=== PATIENT | male | born 1955 | race American Indian/Alaskan Native ===

== ENCOUNTER 2016-10-16 12:21 | Inpatient (IN) | payer OTHER ==
--- NOTE | 2016-10-16 13:00 | Emergency Department Report ---
Chief Complaint: Abdominal Pain Stated Complaint: CHEST PAIN/LRQ PAIN Time Seen by Provider: 10/16/16 12:56 - HPI History of Present Illness: 61 y/o abd pain with frequently urination and cough x 6 days .pt state he was seen at [facility] was evaluate and told had gastroenteritis .pt state he still in pain . - ROS Review of Systems: per HPI - Exam Vital Signs: Vital Signs 10/16/16 12:30 Temperature 97.9 F Pulse Rate 118 H Respiratory 22 Rate Blood Pressure 115/84 O2 Sat by Pulse 99 Oximetry Physical Exam: GENERAL: The patient is well-developed and well-nourished. Patient is in NAD. HENT: Normocephalic. Atraumatic. Patient has moist mucous membranes. Throat: No erythema, swelling or exudates. EYES: Extraocular motions are intact, PERRL NECK: Supple. No meningitic signs are noted. There is no adenopathy noted. CHEST/LUNGS: Clear to auscultation bilaterally. No wheezing, rales or rhonchi noted. There is no respiratory distress noted. HEART/CARDIOVASCULAR: Regular rate and rhythm. Normal S1 S2. No murmurs, rubs , clicks, or gallops. ABDOMEN: Abdomen is soft, nontender.. Bowel sounds normoactive. There is no abdominal distention. Negative rebound tenderness. : Deferred. SKIN: There is no rash. There is no edema. There is no diaphoresis. NEURO: The patient is A&Ox3. The patient has no focal neurologic deficits. MUSCULOSKELETAL: There is no tenderness or deformity. There is no limitation range of motion. PSYCH: Pt has appropriate mood and affect. MSE screening note: Focused history and physical exam performed. Due to findings the following was ordered: ED Disposition for MSE Condition: Stable
[2016-10-16 13:22] LABS: Basophils % (Auto) 0.6 % (0.0-1.8); Eosinophils % (Auto) 0.4 % (0.0-4.3); Hematocrit 41.3 % (35.5-45.6); Hemoglobin 13.5 gm/dl (11.8-15.2); Mean Corpuscular HGB Conc 33 % (32-34); Mean Corpuscular Hemoglobin 30 pg (28-32); Mean Corpuscular Volume 92 fl (84-94); Platelet Count 259 K/mm3 (140-440); Red Blood Count 4.48 M/mm3 (3.65-5.03); Red Cell Distribution Width 16.2 % (13.2-15.2); White Blood Count 11.9 K/mm3 (4.5-11.0)
[2016-10-16 13:48] LABS: Albumin 3.9 g/dL (3.9-5); Albumin/Globulin Ratio 0.9 %; BUN/Creatinine Ratio 9.56; Bilirubin,Direct 0.2 mg/dL (0-0.2); Bilirubin,Indirect 0.7 mg/dL; Bilirubin,Total 0.9 mg/dL (0.1-1.2); Calcium 9.2 mg/dL (8.4-10.2); Chloride 93.5 mmol/L (98-107); Potassium 4.2 mmol/L (3.6-5.0); Total Protein 8.4 g/dL (6.3-8.2)
[2016-10-16] MEDS ORDERED: NACL 0.9% 1000 ML IV ONE (14:14)
[2016-10-16 15:24] LABS: Bacteria,Urine 1+ /HPF (Negative); Bilirubin,Urine NEG (Negative); Blood,Urine NEG (Negative); Ketones,Urine NEG (Negative); Leukocyte Esterase,Urine NEG (Negative); Mucus,Urine FEW /HPF; Nitrite,Urine NEG (Negative)
--- NOTE | 2016-10-16 15:48 | Cat Scan Report ---
FINAL REPORT PROCEDURE: CT ABDOMEN PELVIS WO CON TECHNIQUE: Computerized axial tomography of the abdomen and pelvis was performed without intravenous contrast. This study is performed without intravascular contrast material and its sensitivity for abdominal and pelvic pathology, including neoplasms, inflammation, abscess, free fluid, thrombosis, arterial dissection and infarction, is reduced compared with a contrast enhanced study. HISTORY: abd pain COMPARISON: No prior studies are available for comparison. FINDINGS: Noncalcified nodule is partially included on the 1st image in the right middle lobe of the lungs measuring approximately 6 millimeters in size. Further evaluation with chest CT may be useful to assess for any other lung nodules. Hypoventilatory changes are seen at the lung bases. The liver and spleen appear normal. Gallbladder has wall thickening and mild pericholecystic fluid suggesting acute cholecystitis. No gallstones are seen. No biliary ductal dilation is seen. Pancreatic calcifications suggest changes from prior pancreatitis. Dilation of the pancreatic duct is seen which could be from prior pancreatitis, also. Pancreatic duct is dilated to 6 millimeters in diameter. Correlation with contrast-enhanced MRI of the pancreas may be useful to assure no obstructing mass in the head of the pancreas. Adrenal glands and abdominal aorta are normal in size. Vague hypodense area is seen in the mid right kidney on image 54 of series 3. This could possibly be artifactual or may be a benign cyst but solid lesion can't be excluded given the vague appearance. This could be evaluated with MRI at the same time as the pancreas. No left renal abnormality is seen. Bladder is not well-distended without obvious abnormality. Phleboliths are seen in the pelvis. No free pelvic fluid is seen. Mild left-sided colonic diverticula are seen without evidence of diverticulitis. Appendix is not definitely identified but no pericecal inflammation is seen to suggest appendicitis. Tiny umbilical hernia is seen containing fat. Prostate gland is normal in size. No free pelvic fluid is seen. Increased small bowel air is seen, likely due to swallowed air. Central disc bulges are seen at L3-4, L4-5, and L5-S1. IMPRESSION: 6 millimeter nodule is seen in the right middle lobe of the lungs and further evaluation with chest CT is recommended to assess for any larger nodules. Changes of acute cholecystitis are suspected without biliary ductal dilation. Pancreatic ductal dilation is seen which could be sequela of prior pancreatitis but obstructing lesion in the head of the pancreas cannot be excluded. Furthermore, there is a vague hypodensity in the mid right kidney. Further evaluation with contrast-enhanced MRI is recommended to evaluate these abnormalities.
[2016-10-16] MEDS ORDERED: ZOSYN/NS 4.5GM/100ML 100 ML IV ONE (15:58)
[2016-10-16] MEDS ORDERED: ZOFRAN IV PRN ×2 (18:26→20:48)
[2016-10-16] MEDS ORDERED: MORPHINE IV PRN (18:26)
--- NOTE | 2016-10-16 18:51 | Emergency Department Report ---
HPI - General Chief Complaint: Abdominal Pain Time Seen by Provider: 10/16/16 14:06 - HPI HPI: Chief complaint: Abdominal pain, cough, dysuria HPI: Patient is a 61-year-old male complaining of right abdominal pain radiating to his chest. Patient states he was seen in [facility] 4 days ago with same complaint and Zohrafran diagnosed with gastroenteritis. States he took blood but did no x-rays or CT scans. Patient's rate sees continued to get worse. Patient states she's had a productive cough for 2 weeks and his abdominal pain has been there for 3 days. Patient does have some nausea and vomiting. Patient has a history of pancreatitis Mode of arrival: private car Source: Patient Began: Abdominal pain began on Tuesday] Duration: 3 days Context: Denies previous abdominal surgery Quality: Sharp Severity: 10 out of 10 Improved with: Nothing Worsened with: Palpation, movement and coughing Associated signs and symptoms: Denies fever or diarrhea. ED Past Medical Hx - Past Medical History Previous Medical History?: Yes Hx Hypertension: Yes Hx Heart Attack/AMI: Yes Hx Seizures: Yes Additional medical history: gout, pancreatitis - Surgical History Past Surgical History?: No - Social History Smoking Status: Current Every Day Smoker Substance Use Type: Prescribed - Medications Home Medications: Home Medications Medication Instructions Recorded Confirmed Last Taken Type Clopidogrel Bisulfate [Plavix] 75 mg PO QDAY 10/16/16 10/16/16 Unknown History Lisinopril/Hydrochlorothiazide 1 tab PO QDAY 10/16/16 10/16/16 Unknown History [Zestoretic 20-25 mg] Metoprolol Xl [Metoprolol 50 mg PO QDAY 10/16/16 10/16/16 Unknown History SUCCINATE ER TAB] Nitroglycerin [Nitrostat] 0.4 mg SL Q5M PRN 10/16/16 10/16/16 Unknown History Omeprazole 20 mg PO QDAY 10/16/16 10/16/16 Unknown History amLODIPine [Norvasc] 10 mg PO DAILY 10/16/16 10/16/16 Unknown History levETIRAcetam [Keppra TAB] 750 mg PO BID 10/16/16 10/16/16 Unknown History ED Review of Systems ROS: Stated complaint: CHEST PAIN/LRQ PAIN Other details as noted in HPI ROS Constitutional: No fever , patient states he's lost a little weight. ENT: No uri symptoms Cardiovascular: No chest pain Respiratory: No sob GI: No diarrhea : No dysuria frequency or urgency, Skin: No rash Neuro: No focal weakness or numbness Psych: No depression Jaxon/lymph: No edema Physical Exam - Physical Exam Vital Signs: Vital Signs 10/16/16 10/16/16 10/16/16 12:30 13:27 14:00 Temperature 97.9 F Pulse Rate 118 H 100 H Respiratory 22 16 13 Rate Blood Pressure 115/84 110/66 Blood Pressure 110/66 [Left] O2 Sat by Pulse 99 94 Oximetry 10/16/16 14:54 Temperature Pulse Rate Respiratory 18 Rate Blood Pressure Blood Pressure [Left] O2 Sat by Pulse 94 Oximetry Physical Exam: GENERAL: The patient is thin -[place] male complaining of pain with a deep wet cough HEENT: Normocephalic. Atraumatic. Extraocular motions are intact. Patient has moist mucous membranes. NECK: Supple. No meningitic signs are noted. There is no adenopathy noted. CHEST/LUNGS: Rhonchi right greater than left. There is no respiratory distress noted. HEART/CARDIOVASCULAR: Regular. There is no tachycardia. There is no gallop rub or murmur. ABDOMEN: Abdomen is soft, tender right upper and right lower quadrants. Patient has normal bowel sounds. There is no abdominal distention. SKIN: There is no rash. There is no edema. There is no diaphoresis. NEURO: The patient is awake, alert, and oriented. The patient is cooperative. The patient has no focal neurologic deficits. The patient has normal speech. MUSCULOSKELETAL: There is no tenderness or deformity. There is no limitation range of motion. There is no evidence of acute injury. ED Course Vital Signs 10/16/16 10/16/16 10/16/16 12:30 13:27 14:00 Temperature 97.9 F Pulse Rate 118 H 100 H Respiratory 22 16 13 Rate Blood Pressure 115/84 110/66 Blood Pressure 110/66 [Left] O2 Sat by Pulse 99 94 Oximetry 10/16/16 14:54 Temperature Pulse Rate Respiratory 18 Rate Blood Pressure Blood Pressure [Left] O2 Sat by Pulse 94 Oximetry - Reevaluation(s) Reevaluation #1: 10/16/16 15:[address] Alfredo who states he will consult surgery. Patient will be admitted for rehydration and further evaluation. ED Medical Decision Making - Lab Data Result diagrams: 10/16/16 13:10 10/16/16 13:10 Laboratory Tests 10/16/16 13:10 Total Protein 8.4 H Amylase 71 Lipase 28 Urinalysis within normal limits. - Radiology Data Radiology results: report reviewed (CT abdomen changes of acute cholecystitis or suspected without any biliary ductal dilatation. Pancreatic ductal dilatation is seen which could be a sequelae of prior pancreatitis with an obstructing lesion in the head of the pancreas cannot be excluded) Critical care attestation.: If time is entered above; I have spent that time in minutes in the direct care of this critically ill patient, excluding procedure time. ED Disposition Clinical Impression: Cholecystitis Acute renal failure Qualifiers: Acute renal failure type: unspecified Qualified Code(s): N17.9 - Acute kidney failure, unspecified Disposition: OP ADMITTED IP TO THIS HOSP Is pt being admited?: Yes Does the pt Need Aspirin: Yes Condition: Fair Time of Disposition: 15:58 (admit to the hospitalist)
[2016-10-16] MEDS ORDERED: ASPIRIN PO ONE (18:57)
[2016-10-16] MEDS ORDERED: DULCOLAX PR PRN (20:48)
[2016-10-16] MEDS ORDERED: TYLENOL PO PRN (20:48)
[2016-10-16] MEDS ORDERED: MILK OF MAGNESIA PO PRN (20:48)
--- NOTE | 2016-10-16 20:58 | Event Note ---
Date: 10/16/16 Acute Cholecystitis HTN Seizure Disorder CAD on plavix-stopped plavix
--- NOTE | 2016-10-16 21:39 | Admit Criteria Form ---
Admission Criteria Documentation: GALLBLADDER OR BILE DUCT INFLAMMATION OR STONE Clinical Indications for Admission to Inpatient Care ( Place 'X' for any and all applicable criteria): Admission is indicated for patients with ANY ONE of the following(1)(2)(3)(4)(5) : [ ]I. Acute cholecystitis as indicated by ALL of the following: [ ]a) Right upper quadrant pain, mass, or tenderness [ ]b) Systemic signs of inflammation indicated by ANY ONE of the following: [ ]i) Fever [ ]ii) C-reactive protein level greater than 10 mg/L (95 nmol/L) [ ]iii) White blood cell count greater than 10,000/mm3 (10 x109/L) or less than 4000/mm3 (4 x109/L) [X ]II. Inpatient admission required rather than observation care (Also use Gallbladder or Bile Duct Inflammation or Stone: Observation Care as appropriate) because of ANY ONE of the following: [ ]a) Common bile duct obstruction diagnosed [ ]b) Vomiting that is severe or persistent [X ]c) Severe pain requiring acute inpatient management [ ]d) Signs of intestinal obstruction or peritonitis [A] [ ]e) Severe electrolyte abnormalities requiring inpatient care [ ]f) Absent bowel sounds with complete ileus(8) [ ]g) Hemodynamic instability [ ]h) High fever or infection requiring inpatient admission as indicated by ANY ONE of the following (9): [ ]1) Appropriate outpatient or observation care antimicrobial Treatment. unavailable, not effective, or not feasible [ ]2) Temperature greater than 104.9 degrees F (40.5 degrees C) (oral) [ ]3) Temperature greater than 103.1 degrees F (39.5 degrees C) (oral) or less than 96.8 degrees F (36 degrees C) (rectal) that does not respond to all emergency treatment measures [ ]4) Documented bacteremia [ ]i) IV fluid to replace significant ongoing losses (greater than 3 L/m2 per day) [ ]j) Percutaneous or open drainage (eg, abscess, biliary tract) procedures [ ]k) Immediate inpatient surgery [ ]l) Other condition, treatment or monitoring requiring inpatient admission [ ]III. Acute cholangitis as indicated by ALL of the following(9)(10): [ ]a) Systemic signs of inflammation indicated by ANY ONE of the following: [ ]i) Fever [ ]ii) C-reactive protein level greater than 10 mg/L (95 nmol /L) [ ]iii) White blood cell count greater than 10,000/mm3 (10 x109/L) or less than 4000/mm3 (4 x109/L) [ ]b) Evidence of common bile duct disease indicated by ANY ONE of the following: [ ]i) Total serum bilirubin level greater than or equal to 2 mg/dL (34 micromoles/L) [ ]ii) Liver function test (alkaline phosphatase (ALP), r- glutamyltransferase (GGT), aspartate aminotransferase (AST), or alanine aminotransferase (ALT)) greater than 1.5 times the upper limit of normal[B] [ ]iii) Hepatobiliary imaging showing biliary dilatation or evidence of etiology (eg, stricture, stone, previously placed stent) Extended stay beyond goal length of stay may be needed for (1)(2)): [ ]a) Bacteremia or Hemodynamic instability [ ]b) Cholecystectomy [ ]c) Other surgical procedure(24) [ ]d) Percutaneous or endoscopic ultrasound-guided cholecystostomy The original [facility] content created by [facility] has been revised. The portions of the content which have been revised are identified through the use of italic text or in bold, and [facility] has neither reviewed nor approved the modified material. All other unmodified content is copyright [facility]. Please see references footnoted in the original [facility] edition 2016 Admission Criteria Met: Yes
--- NOTE | 2016-10-16 21:54 | History and Physical Report ---
CHIEF COMPLAINT: Left abdominal pain for 4 days. HISTORY OF PRESENT ILLNESS: A 61-year-old male who presents with right upper quadrant pain for 4 days. The patient went to [facility] and apparently no workup was done. The patient was given Zofran for gastroenteritis. They did not do any x-rays or CAT scans. The patient's abdominal pain got worse. Pain is about 10 on a scale of 1-10. No fever, no chills. PAST MEDICAL HISTORY: Significant for seizure disorder, hypertension, coronary artery disease, gout, and pancreatitis. PAST SURGICAL HISTORY: None. SOCIAL HISTORY: Smokes a pack a day. CURRENT MEDICATIONS: Plavix 75 mg daily, lisinopril 20/25 mg p.o. daily, metoprolol XL 50 mg p.o. daily, omeprazole 20 mg p.o. daily, amlodipine 10 mg p.o. daily, and Keppra 750 mg p.o. b.i.d. FAMILY HISTORY: Significant for hypertension. REVIEW OF SYSTEMS: Significant for right upper quadrant pain, which is 10/10, associated with nausea, no vomiting, no diarrhea. Otherwise, review of systems is essentially negative. PHYSICAL EXAMINATION: GENERAL: Elderly male, cooperative during examination. VITAL SIGNS: Blood pressure is 115/84, temperature is 97.9, pulse is 118, respiratory rate is 22. HEENT: Unremarkable. Pupils equal and reactive. NECK: Supple, no lymphadenopathy, no thyromegaly. LUNGS: Clear to auscultation and percussion. Good air entry. CARDIOVASCULAR: S1, S2 heard. No gallop, no murmur, no rub. Apical impulse in left fifth intercostal space and midclavicular line. ABDOMEN: Soft and benign. Tenderness present in the right upper quadrant region, guarding present in the right upper quadrant region. Bowel sounds are normal. Hernial orifices are normal. EXTREMITIES: Good pedal pulses. No pedal edema. CENTRAL NERVOUS SYSTEM: Alert and oriented x 4, nonfocal exam. LABORATORY DATA: Significant for white count 11,900, slightly elevated. Sodium is 136, slightly low, BUN and creatinine is 22 and 2.3, total protein is 8.4. Urine is negative. CAT scan of the abdomen shows changes of acute cholecystitis without biliary duct dilation. Pancreatic ductal dilatation is seen. 6 mm nodule in the right middle lobe of the lungs for which a CT of the chest was recommended. ASSESSMENT AND PLAN: 1. Acute cholecystitis. The patient was started on IV Zosyn. Surgery consult requested. The patient may need cholecystectomy. 2. Hypertension. The patient's blood pressure medications were kept on hold. We will add Catapres TTS-3 patch to keep his blood pressure down. 3. Seizure disorder. We will start him on IV Keppra 750 mg q. 12 hours to prevent seizures. 4. Coronary artery disease. Stop Plavix because of the impending surgery and the possibility of bleeding. 5. Deep venous thrombosis prophylaxis, Lovenox 40 mg subcutaneous daily. JOB# [id number] KEVIN/ANN-MARIE
[2016-10-16] MEDS ORDERED: CATAPRES-TTS PATCH TD SCH (22:00)
[2016-10-16] MEDS ORDERED: D5NS 1,000 ML IV SCH (22:00)
[2016-10-16] MEDS ORDERED: LOVENOX SUB-Q SCH (22:00)
[2016-10-16] MEDS ORDERED: ZOSYN/NS 4.5GM/100ML 100 ML IV SCH (22:00)
--- NOTE | 2016-10-16 22:08 | History and Physical Report ---
ADDENDUM: Acute renal failure. IV fluids for the time being and check the creatinine. No nephrology consult was requested. JOB# [id number] KEVIN/ANN-MARIE
[2016-10-16] MEDS: KEPPRA 750 MG in D5W 100 ML IV SCH (22:42)
[2016-10-16] MEDS: MORPHINE IV PRN (22:50)
[2016-10-16] MEDS: ZOSYN/NS 3.375GM/50ML 50 ML IV SCH (23:17)
[2016-10-17 04:36] LABS: Albumin 2.8 g/dL (3.9-5); Albumin/Globulin Ratio 0.9 %; BUN/Creatinine Ratio 11.17; Bilirubin,Total 0.9 mg/dL (0.1-1.2); Calcium 7.7 mg/dL (8.4-10.2); Potassium 4.6 mmol/L (3.6-5.0)
[2016-10-17 04:55] LABS: Basophils % (Auto) 0.4 % (0.0-1.8); Eosinophils % (Auto) 0.2 % (0.0-4.3); Hematocrit 35.6 % (35.5-45.6); Hemoglobin 11.3 gm/dl (11.8-15.2); Mean Corpuscular HGB Conc 32 % (32-34); Mean Corpuscular Hemoglobin 30 pg (28-32); Mean Corpuscular Volume 94 fl (84-94); Red Blood Count 3.79 M/mm3 (3.65-5.03); Red Cell Distribution Width 16.8 % (13.2-15.2); White Blood Count 6.9 K/mm3 (4.5-11.0)
[2016-10-17 05:33] LABS: Platelet Count 153 K/mm3 (140-440)
[2016-10-17] MEDS: ZOSYN/NS 3.375GM/50ML 50 ML IV SCH ×2 (08:29→17:48)
[2016-10-17] MEDS: MORPHINE IV PRN ×3 (08:34→22:54)
--- NOTE | 2016-10-17 10:11 | XRay Report ---
ROUTINE CHEST, TWO VIEWS: HISTORY: Cough. The trachea, heart, mediastinal contour, lung naqvi and bony thorax are unremarkable. IMPRESSION: Unremarkable chest x-ray.
[2016-10-17] MEDS ORDERED: ZOFRAN IV PRN (10:58)
--- NOTE | 2016-10-17 10:58 | Progress Note ---
Assessment and Plan Assessment and plan: Patient is a 61-year-old man with a history of seizure disorder, hypertension, coronary artery disease, pancreatitis and tobacco dependency who presents with abdominal pain. 10/26/2016 CT abdomen and pelvis without contrast: 6 mm nodule seen in right middle lobe lungs and further evaluation with chest CT is recommended to assess for any larger nodule. Changes of acute cholecystitis or suspected without biliary ductal dilatation. Pancreatic ductal dilatation seen could be sequelae of prior pancreatitis but obstructing lesion in the head of the pain continues cannot be excluded. Furthermore, there is a vague hypodensity in the mid right kidney. Further evaluation with contrast enhanced MRI is recommended to evaluate these abnormalities. Unremarkable chest x-ray 2 views 1. Acute cholecystitis with abnormal CT: IV antibiotics and consulted general surgery 2. Seizure disorder: Continue Keppra 3. Hypertension, chronic and stable 4. Tobacco dependence: Cessation Counseling done 5. DVT prophylaxis: SCD, stopped Lovenox for possible surgery will start him on heparin Full code Disposition: Continue inpatient care History Interval history: Patient seen and examined. Follow up on abdominal pain which is still present. Overnight uneventful. No cp, sob, n/v or severe headaches. Imaging, old records , testing, labs, nursing notes reviewed. Hospitalist Physical - Physical exam Narrative exam: GEN: Thin frail NAD, AWAKE, ALERT, ORIENTATED 3 HEENT: NCAT, PERRL, EOMI, OP CLEAR NECK: SUPPLE, NO THYROMEGALY, NO JVD, NO LAD CVS: RRR, NORMAL S1S2 LUNGS/CHEST: CTA B, NORMAL CHEST EXPANSION B, GOOD AIR ENTRY B ABD: SOFT, EPIGASTRIC TENDERNESS WITHOUT DISTENTION, GBS, NO REBOUND OR GUARDING EXT/SKIN: NO SIGNIFICANT EDEMA OR RASH MSK: FROM X 4 EXTREMITIES NEURO: CN 2-12 GROSSLY INTACT, NO NEW FOCAL DEFICITS PSY: CALM - Constitutional Vitals: Temp Pulse Resp BP Pulse Ox 99.0 F 90 18 107/72 96 10/17/16 08:00 10/17/16 08:00 10/17/16 08:00 10/17/16 08:00 10/17/16 08:00 Results - Labs CBC & Chem 7: 10/17/16 03:48 10/17/16 03:48 Labs: Laboratory Last Values WBC 6.9 K/mm3 (4.5-11.0) 10/17/16 03:48 RBC 3.79 M/mm3 (3.65-5.03) 10/17/16 03:48 Hgb 11.3 gm/dl (11.8-15.2) L 10/17/16 03:48 Hct 35.6 % (35.5-45.6) 10/17/16 03:48 MCV 94 fl (84-94) 10/17/16 03:48 MCH 30 pg (28-32) 10/17/16 03:48 MCHC 32 % (32-34) 10/17/16 03:48 RDW 16.8 % (13.2-15.2) H 10/17/16 03:48 Plt Count 153 K/mm3 (140-440) 10/17/16 03:48 Lymph % (Auto) 17.0 % (13.4-35.0) 10/17/16 03:48 Vermilion % (Auto) 4.6 % (0.0-7.3) 10/17/16 03:48 Eos % (Auto) 0.2 % (0.0-4.3) 10/17/16 03:48 Baso % (Auto) 0.4 % (0.0-1.8) 10/17/16 03:48 Lymph # 1.2 K/mm3 (1.2-5.4) 10/17/16 03:48 Vermilion # 0.3 K/mm3 (0.0-0.8) 10/17/16 03:48 Eos # 0.0 K/mm3 (0.0-0.4) 10/17/16 03:48 Baso # 0.0 K/mm3 (0.0-0.1) 10/17/16 03:48 Seg Neutrophils % 77.8 % (40.0-70.0) H 10/17/16 03:48 Seg Neutrophils # 5.3 K/mm3 (1.8-7.7) 10/17/16 03:48 Sodium 129 mmol/L (137-145) L D 10/17/16 03:48 Potassium 4.6 mmol/L (3.6-5.0) 10/17/16 03:48 Chloride 96.0 mmol/L (98-107) L 10/17/16 03:48 Carbon Dioxide 20 mmol/L (22-30) L 10/17/16 03:48 Anion Gap 18 mmol/L 10/17/16 03:48 BUN 19 mg/dL (9-20) 10/17/16 03:48 Creatinine 1.7 mg/dL (0.8-1.5) H 10/17/16 03:48 Estimated GFR 50 ml/min 10/17/16 03:48 BUN/Creatinine Ratio 11.17 % 10/17/16 03:48 Glucose 119 mg/dL (75-100) H 10/17/16 03:48 Calcium 7.7 mg/dL (8.4-10.2) L D 10/17/16 03:48 Total Bilirubin 0.9 mg/dL (0.1-1.2) 10/17/16 03:48 Direct Bilirubin 0.2 mg/dL (0-0.2) 10/16/16 13:10 Indirect Bilirubin 0.7 mg/dL 10/16/16 13:10 AST 42 units/L (5-40) H 10/17/16 03:48 ALT 13 units/L (7-56) 10/17/16 03:48 Alkaline Phosphatase 198 units/L (35-129) H 10/17/16 03:48 Total Protein 6.0 g/dL (6.3-8.2) L D 10/17/16 03:48 Albumin 2.8 g/dL (3.9-5) L 10/17/16 03:48 Albumin/Globulin Ratio 0.9 % 10/17/16 03:48 Amylase 71 units/L (27-131) 10/16/16 13:10 Lipase 28 units/L (13-60) 10/16/16 13:10 Urine Color Nancy (Yellow) 10/16/16 14:34 Urine Turbidity Cloudy (Clear) 10/16/16 14:34 Urine pH 5.0 (5.0-7.0) 10/16/16 14:34 Ur Specific Warren 1.017 (1.003-1.030) 10/16/16 14:34 Urine Protein 30 mg/dl mg/dL (Negative) 10/16/16 14:34 Urine Glucose (UA) Neg mg/dL (Negative) 10/16/16 14:34 Urine Ketones Neg mg/dL (Negative) 10/16/16 14:34 Urine Blood Neg (Negative) 10/16/16 14:34 Urine Nitrite Neg (Negative) 10/16/16 14:34 Urine Bilirubin Neg (Negative) 10/16/16 14:34 Urine Urobilinogen 2.0 mg/dL (<2.0) 10/16/16 14:34 Ur Leukocyte Esterase Neg (Negative) 10/16/16 14:34 Urine WBC (Auto) 6.0 /HPF (0.0-6.0) 10/16/16 14:34 Urine RBC (Auto) 5.0 /HPF (0.0-6.0) 10/16/16 14:34 U Epithel Cells (Auto) 2.0 /HPF (0-13.0) 10/16/16 14:34 Urine Bacteria (Auto) 1+ /HPF (Negative) 10/16/16 14:34 Urine Mucus Few /HPF 10/16/16 14:34 - Imaging and Cardiology Chest x-ray: report reviewed CT scan - abdomen: report reviewed CT scan - pelvis: report reviewed
[2016-10-17] MEDS: KEPPRA 750 MG in D5W 100 ML IV SCH ×2 (11:02→22:57)
[2016-10-17] MEDS: D5/0.45NS 1,000 ML IV SCH (11:08)
[2016-10-18] MEDS: ZOSYN/NS 3.375GM/50ML 50 ML IV SCH (00:30)
[2016-10-18 04:59] LABS: Hemoglobin 10.7 gm/dl (11.8-15.2); Mean Corpuscular HGB Conc 33 % (32-34); Mean Corpuscular Hemoglobin 30 pg (28-32); Mean Corpuscular Volume 92 fl (84-94); Platelet Count 211 K/mm3 (140-440); Red Cell Distribution Width 15.8 % (13.2-15.2); White Blood Count 3.9 K/mm3 (4.5-11.0)
[2016-10-18 05:14] LABS: Alanine Aminotransferase 27 units/L (7-56); Albumin 2.9 g/dL (3.9-5); Albumin/Globulin Ratio 0.9 %; Alkaline Phosphatase 110 units/L (35-129); Anion Gap 17 mmol/L; BUN/Creatinine Ratio 8.57; Bilirubin,Total 0.6 mg/dL (0.1-1.2); Blood Urea Nitrogen 12 mg/dL (9-20); Calcium 7.9 mg/dL (8.4-10.2); Carbon Dioxide 22 mmol/L (22-30); Chloride 100.3 mmol/L (98-107); Glucose 129 mg/dL (75-100); Potassium 4.2 mmol/L (3.6-5.0); Sodium 135 mmol/L (137-145)
[2016-10-18] MEDS: D5/0.45NS 1,000 ML IV SCH (06:22)
[2016-10-18] MEDS: PROTONIX IV SCH (09:12)
[2016-10-18] MEDS: KEPPRA 750 MG in D5W 100 ML IV SCH (11:40)
--- NOTE | 2016-10-18 12:07 | Nuclear Medicine Report ---
HEPATOBILIARY SCAN: History: Cholecystitis. Comparison: CT abdomen pelvis without contrast performed 10/16/16. HIDA scan dated 02/03/09. Following the injection of the radionuclide, serial scanning was obtained over the right upper quadrant. There is nonfilling of the gallbladder out to 60 minutes on HIDA scan. There is normal visualization of the radiotracer in the liver parenchyma, central biliary ducts, common bile duct and bowel loops. CCK was not administered. IMPRESSION: Nonvisualization of the gallbladder consistent with acute cholecystitis.
--- NOTE | 2016-10-18 12:20 | Progress Note ---
Assessment and Plan Assessment and plan: Patient is a 61-year-old man with a history of seizure disorder, hypertension, coronary artery disease, pancreatitis and tobacco dependency who presents with abdominal pain. 10/26/2016 CT abdomen and pelvis without contrast: 6 mm nodule seen in right middle lobe lungs and further evaluation with chest CT is recommended to assess for any larger nodule. Changes of acute cholecystitis or suspected without biliary ductal dilatation. Pancreatic ductal dilatation seen could be sequelae of prior pancreatitis but obstructing lesion in the head of the pain continues cannot be excluded. Furthermore, there is a vague hypodensity in the mid right kidney. Further evaluation with contrast enhanced MRI is recommended to evaluate these abnormalities. Unremarkable chest x-ray 2 views 1. Sepsis/ Acute cholecystitis with abnormal CT: IV antibiotics and consulted general surgery 2. Seizure disorder: Continue Keppra 3. Hypertension, chronic and stable 4. Tobacco dependence: Cessation Counseling done 5. Vasomotor nephropathy: improved with IVF Full code Disposition: Continue inpatient care History Interval history: abdominal pain which is still present. Overnight uneventful. No cp, sob, n/v or severe headaches Hospitalist Physical - Physical exam Narrative exam: General: Patient appears well in no distress HEENT: MMM, EOMI cardiac: S1-S2 heard lungs: clear to auscultation, abdomen: soft, RUQ tenderness, nondistended bowel sounds positive extremities: no edema clubbing or cyanosis Skin: no rash or lesion Neuro: no focal deficit Psych: appropriate behavior and mood, cognition intact - Constitutional Vitals: Temp Pulse Resp BP Pulse Ox 98.2 F 80 16 128/87 98 10/18/16 08:00 10/18/16 08:00 10/18/16 08:00 10/18/16 08:00 10/18/16 08:00 Results - Labs CBC & Chem 7: 10/18/16 04:34 10/18/16 04:34 Labs: Laboratory Last Values WBC 3.9 K/mm3 (4.5-11.0) L 10/18/16 04:34 RBC 3.60 M/mm3 (3.65-5.03) L 10/18/16 04:34 Hgb 10.7 gm/dl (11.8-15.2) L 10/18/16 04:34 Hct 33.0 % (35.5-45.6) L 10/18/16 04:34 MCV 92 fl (84-94) 10/18/16 04:34 MCH 30 pg (28-32) 10/18/16 04:34 MCHC 33 % (32-34) 10/18/16 04:34 RDW 15.8 % (13.2-15.2) H 10/18/16 04:34 Plt Count 211 K/mm3 (140-440) 10/18/16 04:34 Lymph % (Auto) 17.0 % (13.4-35.0) 10/17/16 03:48 [place] % (Auto) 4.6 % (0.0-7.3) 10/17/16 03:48 Eos % (Auto) 0.2 % (0.0-4.3) 10/17/16 03:48 Baso % (Auto) 0.4 % (0.0-1.8) 10/17/16 03:48 Lymph # 1.2 K/mm3 (1.2-5.4) 10/17/16 03:48 [place] # 0.3 K/mm3 (0.0-0.8) 10/17/16 03:48 Eos # 0.0 K/mm3 (0.0-0.4) 10/17/16 03:48 Baso # 0.0 K/mm3 (0.0-0.1) 10/17/16 03:48 Seg Neutrophils % 77.8 % (40.0-70.0) H 10/17/16 03:48 Seg Neutrophils # 5.3 K/mm3 (1.8-7.7) 10/17/16 03:48 Sodium 135 mmol/L (137-145) L 10/18/16 04:34 Potassium 4.2 mmol/L (3.6-5.0) 10/18/16 04:34 Chloride 100.3 mmol/L (98-107) 10/18/16 04:34 Carbon Dioxide 22 mmol/L (22-30) 10/18/16 04:34 Anion Gap 17 mmol/L 10/18/16 04:34 BUN 12 mg/dL (9-20) 10/18/16 04:34 Creatinine 1.4 mg/dL (0.8-1.5) 10/18/16 04:34 Estimated GFR > 60 ml/min 10/18/16 04:34 BUN/Creatinine Ratio 8.57 % 10/18/16 04:34 Glucose 129 mg/dL (75-100) H 10/18/16 04:34 Calcium 7.9 mg/dL (8.4-10.2) L 10/18/16 04:34 Total Bilirubin 0.6 mg/dL (0.1-1.2) 10/18/16 04:34 Direct Bilirubin 0.2 mg/dL (0-0.2) 10/16/16 13:10 Indirect Bilirubin 0.7 mg/dL 10/16/16 13:10 AST 62 units/L (5-40) H 10/18/16 04:34 ALT 27 units/L (7-56) 10/18/16 04:34 Alkaline Phosphatase 110 units/L (35-129) 10/18/16 04:34 Total Protein 6.0 g/dL (6.3-8.2) L 10/18/16 04:34 Albumin 2.9 g/dL (3.9-5) L 10/18/16 04:34 Albumin/Globulin Ratio 0.9 % 10/18/16 04:34 Amylase 71 units/L (27-131) 10/16/16 13:10 Lipase 28 units/L (13-60) 10/16/16 13:10 Urine Color Nancy (Yellow) 10/16/16 14:34 Urine Turbidity Cloudy (Clear) 10/16/16 14:34 Urine pH 5.0 (5.0-7.0) 10/16/16 14:34 Ur Specific [place] 1.017 (1.003-1.030) 10/16/16 14:34 Urine Protein 30 mg/dl mg/dL (Negative) 10/16/16 14:34 Urine Glucose (UA) Neg mg/dL (Negative) 10/16/16 14:34 Urine Ketones Neg mg/dL (Negative) 10/16/16 14:34 Urine Blood Neg (Negative) 10/16/16 14:34 Urine Nitrite Neg (Negative) 10/16/16 14:34 Urine Bilirubin Neg (Negative) 10/16/16 14:34 Urine Urobilinogen 2.0 mg/dL (<2.0) 10/16/16 14:34 Ur Leukocyte Esterase Neg (Negative) 10/16/16 14:34 Urine WBC (Auto) 6.0 /HPF (0.0-6.0) 10/16/16 14:34 Urine RBC (Auto) 5.0 /HPF (0.0-6.0) 10/16/16 14:34 U Epithel Cells (Auto) 2.0 /HPF (0-13.0) 10/16/16 14:34 Urine Bacteria (Auto) 1+ /HPF (Negative) 10/16/16 14:34 Urine Mucus Few /HPF 10/16/16 14:34
[2016-10-18] MEDS: ZOSYN/NS 4.5GM/100ML 100 ML IV SCH ×2 (14:13→22:55)
--- NOTE | 2016-10-18 14:18 | Consultation ---
Addendum entered and electronically signed by SAM VALDOVINOS MD 10/18/16 18:44 : Patient is hospitalized with acute cholecystitis, consultation is requested for preoperative cardiac assessment in anticipation of gallbladder surgery. He has a cardiac history dating back to several years ago in [place] when he went coronary stenting. The details of his intervention are not available for review. He has continued to follow-up regularly with his electromechanical technologist in [place], despite his moving to [place] several months ago. During this past summer, he states he underwent the follow-up stress test his electromechanical technologist office which was negative. He is very physically active, and has no chest pain, no shortness of breath and no palpitations. There is no lower extremity edema. Today, with performed a preoperative EKG, that shows a normal sinus rhythm at 70 , nonspecific T-wave abnormalities, benign ECG. Recommendations: The patient is stable for noncardiac surgery, low to moderate cardiac risk. Okay for temporary hold on Plavix, for up to 3-4 days, or per recommendation of general surgery. Original Note: History of Present Illness Consult date: 10/18/16 Consult reason: pre op evaluation History of present illness: This is a 61yr old male who presented with upper right abdominal pain with nausea vomiting admitted with acute cholecystitis. Cardiac consultation requested for pre-operative risk assessment for possible cholecystectomy. Patient reports a cardiac history of coronary disease. Patient reports his most recent cardiac workup was done in [place] 6 months ago where he was told he had a normal stress thallium. He currently resting in bed and reports he is feeling better. He denies chest pain and shortness of breath. No ECG available for review. Medications and Allergies Allergies Allergy/AdvReac Type Severity Reaction Status Date / Time hydromorphone HCl Allergy Hives Verified 10/16/16 12:36 [From Dilaudid] Home Medications Medication Instructions Recorded Confirmed Last Taken Type Clopidogrel Bisulfate [Plavix] 75 mg PO QDAY 10/16/16 10/16/16 Unknown History Lisinopril/Hydrochlorothiazide 1 tab PO QDAY 10/16/16 10/16/16 Unknown History [Zestoretic 20-25 mg] Metoprolol Xl [Metoprolol 50 mg PO QDAY 10/16/16 10/16/16 Unknown History SUCCINATE ER TAB] Nitroglycerin [Nitrostat] 0.4 mg SL Q5M PRN 10/16/16 10/16/16 Unknown History Omeprazole 20 mg PO QDAY 10/16/16 10/16/16 Unknown History amLODIPine [Norvasc] 10 mg PO DAILY 10/16/16 10/16/16 Unknown History levETIRAcetam [Keppra TAB] 750 mg PO BID 10/16/16 10/16/16 Unknown History Active Meds: Active Medications Acetaminophen (Tylenol) 650 mg PO Q4H PRN PRN Reason: Pain MILD(1-3)/Fever >100.5/MULTANI Bisacodyl (Dulcolax) 10 mg VT QDAY PRN PRN Reason: Constipation unrelieved by MOM Clonidine HCl (Catapres-Tts Patch) 0.3 mg TD Sa [facility] Last Admin: 10/16/16 22:55 Dose: 0.3 mg Heparin Sodium (Porcine) (Heparin) 5,000 unit SUB-Q Q12HR [facility] Dextrose/Sodium Chloride (D5/0.45ns) 1,000 mls @ 75 mls/hr IV DIRECT [facility] Last Admin: 10/18/16 06:22 Dose: 75 mls/hr Levetiracetam 750 mg/ Dextrose 107.5 mls @ 400 mls/hr IV Q12H [facility] Last Admin: 10/18/16 11:40 Dose: 400 mls/hr Piperacillin Sod/Tazobactam Sod (Zosyn/Ns 4.5gm/100ml) 100 mls @ 200 mls/hr IV Q8HR [facility] Last Admin: 10/18/16 14:13 Dose: 200 mls/hr Magnesium Hydroxide (Milk Of Magnesia) 30 ml PO Q4H PRN PRN Reason: Constipation Morphine Sulfate (Morphine) 4 mg IV Q4H PRN PRN Reason: Pain , Severe (7-10) Last Admin: 10/17/16 22:54 Dose: 4 mg Ondansetron HCl (Zofran) 4 mg IV Q4H PRN PRN Reason: Nausea And Vomiting Pantoprazole Sodium (Protonix) 40 mg IV QDAY [facility] Last Admin: 10/18/16 09:12 Dose: 40 mg Physical Examination Vital Signs Temp Pulse Resp BP Pulse Ox 97.9 F 118 H 22 115/84 99 10/16/16 12:30 10/16/16 12:30 10/16/16 12:30 10/16/16 12:30 10/16/16 12:30 General appearance: no acute distress HEENT: Positive: PERRL Neck: Positive: trachea midline Cardiac: Positive: Reg Rate and Rhythm Lungs: Positive: Decreased Breath Sounds Results 10/18/16 04:34 10/18/16 04:34 Cardiac Enzymes 10/18/16 Range/Units 04:34 AST 62 H (5-40) units/L CBC 10/18/16 Range/Units 04:34 WBC 3.9 L (4.5-11.0) K/mm3 RBC 3.60 L (3.65-5.03) M/mm3 Hgb 10.7 L (11.8-15.2) gm/dl Hct 33.0 L (35.5-45.6) % Plt Count 211 (140-440) K/mm3 Comprehensive Metabolic Panel 10/18/16 Range/Units 04:34 Sodium 135 L (137-145) mmol/L Potassium 4.2 (3.6-5.0) mmol/L Chloride 100.3 (98-107) mmol/L Carbon Dioxide 22 (22-30) mmol/L BUN 12 (9-20) mg/dL Creatinine 1.4 (0.8-1.5) mg/dL Glucose 129 H (75-100) mg/dL Calcium 7.9 L (8.4-10.2) mg/dL AST 62 H (5-40) units/L ALT 27 (7-56) units/L Alkaline Phosphatase 110 (35-129) units/L Total Protein 6.0 L (6.3-8.2) g/dL Albumin 2.9 L (3.9-5) g/dL Assessment and Plan Acute Cholecystitis Pre-op cardiac risk assessment Hx of CAD normal MPI 6 months ago in [place] per patient report. plavix currently on hold Plan: Will get a 12 lead ECG for review.
[2016-10-18] MEDS: MORPHINE IV PRN ×2 (16:00→21:14)
[2016-10-19] MEDS: KEPPRA 750 MG in D5W 100 ML IV SCH ×3 (00:23→23:53)
[2016-10-19] MEDS: D5/0.45NS 1,000 ML IV SCH (00:24)
[2016-10-19] MEDS: HEPARIN SUB-Q SCH ×3 (00:38→23:55)
[2016-10-19] MEDS: ZOSYN/NS 3.375GM/50ML 50 ML IV SCH (00:44)
[2016-10-19] MEDS: MORPHINE IV PRN ×3 (01:41→19:00)
--- NOTE | 2016-10-19 02:42 | Anesthesia Consultation ---
Anesthesia Consult and Med Hx Date of service: 10/19/16 - Airway Anesthetic Teeth Evaluation: Poor, Chipped (chipped molar, right side upper) ROM Head & Neck: Adequate Mental/Hyoid Distance: Adequate Mallampati Class: Class II Intubation Access Assessment: Probably Good - Pulmonary Exam CTA: Yes - Cardiac Exam Cardiac Exam: RRR - Pre-Operative Health Status ASA Pre-Surgery Classification: ASA3 Proposed Anesthetic Plan: General - Pulmonary Hx Smoking: Yes (1 pack every 3 days) Hx Asthma: No COPD: No Hx Sleep Apnea: No - Cardiovascular System Hx Hypertension: Yes Hx Coronary Artery Disease: Yes Hx Heart Attack/AMI: Yes (2014) Hx Percutaneous Transluminal Coronary Angioplasty (PTCA): Yes (STENT X 1 2014, ON PLAVIX) - Central Nervous System Hx Seizures: Yes (LAST SEIZURE 04/2016, TAKES KEPPRA) CVA: No - Gastrointestinal Hx Gastroesophageal Reflux Disease: Yes - Endocrine Hx Renal Disease: No Hx End Stage Renal Disease: No Hx Insulin Dependent Diabetes: No Hx Thyroid Disease: No - Hematic Hx Anemia: Yes - Other Systems Hx Cancer: No Hx Obesity: No - Additional Comments Anesthesia Medical History Comments: PATIENT CLEARED BY CARDIOLOGY. LAST TOOK PLAVIX TUESDAY MORNING 10/18/16.
[2016-10-19] MEDS ORDERED: VERSED IV NR (03:00)
[2016-10-19] MEDS ORDERED: NACL 0.9% 1000 ML 1,000 ML IV SCH (03:00)
[2016-10-19] MEDS ORDERED: PEPCID PO NR (03:00)
[2016-10-19] MEDS: ZOSYN/NS 4.5GM/100ML 100 ML IV SCH ×3 (05:44→23:54)
--- NOTE | 2016-10-19 07:59 | Progress Note ---
Assessment and Plan Assessment and plan: Patient is a 61-year-old man with a history of seizure disorder, hypertension, coronary artery disease, pancreatitis and tobacco dependency who presents with abdominal pain. 10/26/2016 CT abdomen and pelvis without contrast: 6 mm nodule seen in right middle lobe lungs and further evaluation with chest CT is recommended to assess for any larger nodule. Changes of acute cholecystitis or suspected without biliary ductal dilatation. Pancreatic ductal dilatation seen could be sequelae of prior pancreatitis but obstructing lesion in the head of the pain continues cannot be excluded. Furthermore, there is a vague hypodensity in the mid right kidney. Further evaluation with contrast enhanced MRI is recommended to evaluate these abnormalities. Unremarkable chest x-ray 2 views 1. Sepsis/ Acute cholecystitis with abnormal CT: IV antibiotics and consulted general surgery Cardiology input appreciated, patient is low to moderate risk for moderate risk procedure. May proceed with cholecystectomy 2. Seizure disorder: Continue Keppra 3. Hypertension, chronic and stable 4. Tobacco dependence: Cessation Counseling done 5. Vasomotor nephropathy: improved with IVF Full code Disposition: Continue inpatient care History Interval history: Belly pain is now resolved Hospitalist Physical - Physical exam Narrative exam: General: Patient appears well in no distress HEENT: MMM, EOMI cardiac: S1-S2 heard lungs: clear to auscultation, abdomen: soft, nontender, nondistended bowel sounds positive extremities: no edema clubbing or cyanosis Skin: no rash or lesion Neuro: no focal deficit Psych: appropriate behavior and mood, cognition intact - Constitutional Vitals: Temp Pulse Resp BP Pulse Ox 97.9 F 80 20 152/104 96 10/19/16 07:00 10/19/16 07:00 10/19/16 07:00 10/19/16 07:00 10/19/16 07:00 General appearance: Present: no acute distress Results - Labs CBC & Chem 7: 10/18/16 04:34 10/18/16 04:34 Labs: Laboratory Last Values WBC 3.9 K/mm3 (4.5-11.0) L 10/18/16 04:34 RBC 3.60 M/mm3 (3.65-5.03) L 10/18/16 04:34 Hgb 10.7 gm/dl (11.8-15.2) L 10/18/16 04:34 Hct 33.0 % (35.5-45.6) L 10/18/16 04:34 MCV 92 fl (84-94) 10/18/16 04:34 MCH 30 pg (28-32) 10/18/16 04:34 MCHC 33 % (32-34) 10/18/16 04:34 RDW 15.8 % (13.2-15.2) H 10/18/16 04:34 Plt Count 211 K/mm3 (140-440) 10/18/16 04:34 Lymph % (Auto) 17.0 % (13.4-35.0) 10/17/16 03:48 [place] % (Auto) 4.6 % (0.0-7.3) 10/17/16 03:48 Eos % (Auto) 0.2 % (0.0-4.3) 10/17/16 03:48 Baso % (Auto) 0.4 % (0.0-1.8) 10/17/16 03:48 Lymph # 1.2 K/mm3 (1.2-5.4) 10/17/16 03:48 [place] # 0.3 K/mm3 (0.0-0.8) 10/17/16 03:48 Eos # 0.0 K/mm3 (0.0-0.4) 10/17/16 03:48 Baso # 0.0 K/mm3 (0.0-0.1) 10/17/16 03:48 Seg Neutrophils % 77.8 % (40.0-70.0) H 10/17/16 03:48 Seg Neutrophils # 5.3 K/mm3 (1.8-7.7) 10/17/16 03:48 Sodium 135 mmol/L (137-145) L 10/18/16 04:34 Potassium 4.2 mmol/L (3.6-5.0) 10/18/16 04:34 Chloride 100.3 mmol/L (98-107) 10/18/16 04:34 Carbon Dioxide 22 mmol/L (22-30) 10/18/16 04:34 Anion Gap 17 mmol/L 10/18/16 04:34 BUN 12 mg/dL (9-20) 10/18/16 04:34 Creatinine 1.4 mg/dL (0.8-1.5) 10/18/16 04:34 Estimated GFR > 60 ml/min 10/18/16 04:34 BUN/Creatinine Ratio 8.57 % 10/18/16 04:34 Glucose 129 mg/dL (75-100) H 10/18/16 04:34 Calcium 7.9 mg/dL (8.4-10.2) L 10/18/16 04:34 Total Bilirubin 0.6 mg/dL (0.1-1.2) 10/18/16 04:34 Direct Bilirubin 0.2 mg/dL (0-0.2) 10/16/16 13:10 Indirect Bilirubin 0.7 mg/dL 10/16/16 13:10 AST 62 units/L (5-40) H 10/18/16 04:34 ALT 27 units/L (7-56) 10/18/16 04:34 Alkaline Phosphatase 110 units/L (35-129) 10/18/16 04:34 Total Protein 6.0 g/dL (6.3-8.2) L 10/18/16 04:34 Albumin 2.9 g/dL (3.9-5) L 10/18/16 04:34 Albumin/Globulin Ratio 0.9 % 10/18/16 04:34 Amylase 71 units/L (27-131) 10/16/16 13:10 Lipase 28 units/L (13-60) 10/16/16 13:10 Urine Color Nancy (Yellow) 10/16/16 14:34 Urine Turbidity Cloudy (Clear) 10/16/16 14:34 Urine pH 5.0 (5.0-7.0) 10/16/16 14:34 Ur Specific [place] 1.017 (1.003-1.030) 10/16/16 14:34 Urine Protein 30 mg/dl mg/dL (Negative) 10/16/16 14:34 Urine Glucose (UA) Neg mg/dL (Negative) 10/16/16 14:34 Urine Ketones Neg mg/dL (Negative) 10/16/16 14:34 Urine Blood Neg (Negative) 10/16/16 14:34 Urine Nitrite Neg (Negative) 10/16/16 14:34 Urine Bilirubin Neg (Negative) 10/16/16 14:34 Urine Urobilinogen 2.0 mg/dL (<2.0) 10/16/16 14:34 Ur Leukocyte Esterase Neg (Negative) 10/16/16 14:34 Urine WBC (Auto) 6.0 /HPF (0.0-6.0) 10/16/16 14:34 Urine RBC (Auto) 5.0 /HPF (0.0-6.0) 10/16/16 14:34 U Epithel Cells (Auto) 2.0 /HPF (0-13.0) 10/16/16 14:34 Urine Bacteria (Auto) 1+ /HPF (Negative) 10/16/16 14:34 Urine Mucus Few /HPF 10/16/16 14:34
--- NOTE | 2016-10-19 08:06 | Consultation ---
HISTORY OF PRESENT ILLNESS: I saw superintendent today, he is a 61-year-old black male who was in [facility] apparently last week because of severe pain in the epigastrium, nausea, and vomiting. Apparently, he was discharged home. He came back to this hospital on Tuesday because of the same pain that is not going away with severe nausea and vomiting. He was evaluated by our ER physician and then he was admitted. He had a HIDA scan today that showed evidence of very low ejection fraction, it was nonfunctional. He had a CAT scan of the abdomen on 10/16/2016 that showed evidence of a stone in the gallbladder with some edema. He was admitted by Dr. Alfredo the same day and for further evaluation I was called this morning to evaluate. The patient gives history of pain the same. He is a smoker. He gives a history of heart attack about 2 years ago. He came from [place]. He is not allergic to any medicine. He gives a history of seizures as well with gout and pancreatitis. He was thus admitted and he had a CBC upon admission that showed white count of 11.9 and hemoglobin was 13.5. The potassium 4.2. Creatinine 2.3 and today it is 1.4. Total bilirubin was normal. Noted that some elevation of the AST and the ALT. The alkaline phosphatase was 91 and today is 110. So I was called to evaluate him. PHYSICAL EXAMINATION: GENERAL: Shows a thin, slim man who looks older than his staged age. HEAD AND NECK: Negative. NECK: Supple. CHEST: Essentially clear to me. HEART: Sound normal to me. ABDOMEN: Protuberant, severe tenderness in the mid right upper quadrant. EXTREMITIES: Showed no significant edema. IMPRESSION AND PLAN: Right upper quadrant pain with edema of the gallbladder with impacted stones. Has minimal elevation of the liver enzymes and history of ? myocardial infarction. I talked to his family physician ____ for having furnace stock inspector to evaluate him preop. Plan to do him tomorrow. JOB# [id number] FOREIGN/ANN-MARIE
--- NOTE | 2016-10-19 09:18 | Progress Note ---
Addendum entered and electronically signed by SAM VALDOVINOS MD 10/19/16 19:10 : Patient awaiting gallbladder surgery, no cardiac complaints. Original Note: Assessment and Plan Acute Cholecystitis Pre-op cardiac risk assessment EKG shows a normal sinus rhythm at 70, nonspecific T-wave abnormalities, benign ECG. Hx of CAD normal MPI 6 months ago in [place] per patient report. plavix currently on hold The patient is stable for noncardiac surgery, low to moderate cardiac risk. Subjective Date of service: 10/19/16 Interval history: Patient has no chest pain or shortness of breath. For possible gallbladder surgery today. Objective Vital Signs Temp Pulse Resp BP Pulse Ox 10/19/16 07:00 97.9 F 80 20 152/104 96 10/19/16 02:11 18 10/19/16 01:41 20 10/19/16 00:00 97.9 F 78 18 137/95 99 10/18/16 21:44 18 10/18/16 21:14 20 10/18/16 20:00 98.0 F 68 18 146/95 99 10/18/16 16:30 98.4 F 66 20 139/89 98 - Physical Examination General: No Apparent Distress HEENT: Positive: PERRL Neck: Positive: trachea midline Cardiac: Positive: Reg Rate and Rhythm Lungs: Positive: Decreased Breath Sounds
[2016-10-19] MEDS: PROTONIX IV SCH (10:10)
[2016-10-19] MEDS ORDERED: APRESOLINE IV ONE (13:13)
[2016-10-19] MEDS ORDERED: ZOFRAN IV PRN (14:24)
[2016-10-19] MEDS ORDERED: MORPHINE IV PRN (14:24)
[2016-10-19] MEDS ORDERED: MORPHINE ONE (14:34)
[2016-10-19] MEDS ORDERED: DIPRIVAN 10 MG/ML IV ONE (14:40)
[2016-10-19] MEDS ORDERED: XYLOCAINE MPF 2% ONE (14:40)
[2016-10-19] MEDS ORDERED: ZEMURON IV ONE (14:40)
[2016-10-19] MEDS ORDERED: ZOFRAN ONE (15:44)
[2016-10-19] MEDS ORDERED: ROBINUL ONE (15:50)
[2016-10-19] MEDS ORDERED: BLOXIVERZ ONE (15:50)
[2016-10-19] MEDS ORDERED: MARCAINE 0.5% INFILTRATI ONE (16:17)
[2016-10-19] MEDS ORDERED: NACL 0.9% IR ONE (16:17)
[2016-10-19] MEDS: D5W/0.45% NACL/KCL 20 MEQ 1,000 ML IV SCH (19:00)
--- NOTE | 2016-10-19 20:12 | Anesthesia Day of Surgery ---
Anesthesia Day of Surgery - Day of Surgery Patient Examined: Yes Patient H&P Reviewed: Yes Patient is NPO: Yes
--- NOTE | 2016-10-19 20:12 | Post Anesthesia Evaluation ---
- Post Anesthesia Evaluation Patient Participated: Yes Airway Patent: Yes Stable Respiratory Function: Yes Nausea/Vomiting: No Temp > 96.8F: Yes Pain Manageable: Yes Adequeate Hydration: Yes Anesthesia Complications: No Block Receding Appropriately: Not Applicable Patient on Ventilator: No
--- NOTE | 2016-10-19 20:58 | Operative Report ---
PREOPERATIVE DIAGNOSIS: Gallbladder disease with nonfunctional gallbladder. POSTOPERATIVE DIAGNOSIS: Gallbladder disease with nonfunctional gallbladder. SURGERY: Laparoscopic cholecystectomy. ANESTHESIA: General. BLOOD LOSS: Minimal. FINDINGS: The patient had a thickened gallbladder. At one point in the infundibulum, the wall was thickened to about a good 3-4 mm. The cystic duct was about 2 mm, the same thing with the cystic artery. These were endoclipped x 4, transected. The rest of examination did not reveal anything specific. DESCRIPTION OF PROCEDURE: With the patient in supine position, prepped and draped in usual fashion, I made a small incision in the mid right upper abdomen with the local anesthetic, then a Veress needle was inserted, it went nicely. The abdominal cavity was then insufflated with CO2 pressure of 15 for which #5 trocar inserted. With use of the camera #5, I was able to introduce 3 more trocars, #5 in the infraumbilical area, 10 in the mid upper epigastrium, another 5 in the right upper quadrant area. The gallbladder was seen. I had to decompress it. I got about 15 mL out of it, then it was held from its fundus and infundibular area with the grasper, at which point, I was able to dissect and see both cystic duct and cystic artery. These were endoclipped x 4, then transected. Then, I got the gallbladder out using electrocautery all the way via the EndoCatch. I had good hemostasis. I was well satisfied. We had good irrigation and I was sure no bleeding. After that maneuvering, I removed all these trocars, one by one sustaining no bleeding from the insertion sites and I did leave a piece of Surgicel in the bed of the gallbladder. At that point, the abdominal cavity was deflated, closing the fascia with the use of 0 Vicryl and 4-0 for the skin. The patient was then transferred to the recovery room in good condition. JOB# [id number] FOREIGN/ANN-MARIE
[2016-10-20] MEDS: MORPHINE IV PRN ×4 (00:26→14:23)
[2016-10-20] MEDS: ZOSYN/NS 4.5GM/100ML 100 ML IV SCH ×3 (05:25→22:00)
--- NOTE | 2016-10-20 09:07 | Progress Note ---
Addendum entered and electronically signed by HARIS GIRON MD 11:22: Agree with Mrs Cueva assessment and plan Patient is complaining of postoperetive right sided pleuritic chest pain. No further cardiac intervention is needed Resume plavix when ok per surgery Will sign off Please call back if you have any questions Original Note: Assessment and Plan Acute Cholecystitis s/p laparoscopic cholecystectomy 10/19 Pre-op cardiac risk assessment EKG shows a normal sinus rhythm at 70, nonspecific T-wave abnormalities, benign ECG. Hx of CAD normal MPI 6 months ago in [place] per patient report. plavix currently on hold Continue routine post op management. Resume plavix when ok with surgery. Stable cardiac sage. Subjective Date of service: 10/20/16 Interval history: s/p laparoscopic cholecystectomy 10/19. Patient is resting in bed with mild abdominal pain. He has no chest pain or shortness of breath. Objective Vital Signs Temp Pulse Pulse Resp BP BP Pulse Ox 10/20/16 06:45 16 10/20/16 05:05 98.8 F 112 H 20 101/69 100 10/20/16 01:47 102.9 F H 112 H 17 147/71 99 10/20/16 01:20 99.1 F 119 H 20 149/97 97 10/19/16 18:00 97.7 F 80 16 137/86 10/19/16 17:15 90 15 142/87 98 10/19/16 17:00 82 17 147/90 98 10/19/16 16:50 87 19 142/89 98 10/19/16 16:45 89 19 148/84 98 10/19/16 16:33 98 F 83 19 151/93 96 10/19/16 13:45 99.5 F 79 20 155/97 96 10/19/16 11:00 97.3 F L 76 20 159/107 - Physical Examination General: No Apparent Distress HEENT: Positive: PERRL Neck: Positive: trachea midline Cardiac: Positive: Reg Rate and Rhythm Lungs: Positive: Decreased Breath Sounds
[2016-10-20] MEDS: HEPARIN SUB-Q SCH (09:50)
[2016-10-20] MEDS: KEPPRA 750 MG in D5W 100 ML IV SCH ×2 (10:08→23:00)
[2016-10-20] MEDS: D5W/0.45% NACL/KCL 20 MEQ 1,000 ML IV SCH (11:12)
[2016-10-20 13:31] LABS: Albumin 3.2 g/dL (3.9-5); Bilirubin,Direct 0.3 mg/dL (0-0.2); Bilirubin,Indirect 0.7 mg/dL; Total Protein 6.5 g/dL (6.3-8.2)
--- NOTE | 2016-10-20 14:09 | Progress Note ---
Assessment and Plan Assessment and plan: Patient is a 61-year-old man with a history of seizure disorder, hypertension, coronary artery disease, pancreatitis and tobacco dependency who presents with abdominal pain. 10/26/2016 CT abdomen and pelvis without contrast: 6 mm nodule seen in right middle lobe lungs and further evaluation with chest CT is recommended to assess for any larger nodule. Changes of acute cholecystitis or suspected without biliary ductal dilatation. Pancreatic ductal dilatation seen could be sequelae of prior pancreatitis but obstructing lesion in the head of the pain continues cannot be excluded. Furthermore, there is a vague hypodensity in the mid right kidney. Further evaluation with contrast enhanced MRI is recommended to evaluate these abnormalities. Unremarkable chest x-ray 2 views 1. Sepsis/ Acute cholecystitis with abnormal CT: IV antibiotics and consulted general surgery Cardiology input appreciated, patient is low to moderate risk for moderate risk procedure. s/p Cholecystectomy on 10/19/2016 continue to advance diet 2. Seizure disorder: Continue Keppra 3. Hypertension, chronic and stable 4. Tobacco dependence: Cessation Counseling done 5. Vasomotor nephropathy: improved with IVF Tentative dc home tomorrow if okayed by Dr Saleh History Interval history: Belly pain is now resolved Hospitalist Physical - Physical exam Narrative exam: General: Patient appears well in no distress HEENT: MMM, EOMI cardiac: S1-S2 heard lungs: clear to auscultation, abdomen: soft, nontender, nondistended bowel sounds positive extremities: no edema clubbing or cyanosis Skin: no rash or lesion Neuro: no focal deficit Psych: appropriate behavior and mood, cognition intact - Constitutional Vitals: Temp Pulse Resp BP Pulse Ox 98.1 F 88 18 97/69 96 10/20/16 13:00 10/20/16 13:00 10/20/16 13:00 10/20/16 13:00 10/20/16 13:00 General appearance: Present: no acute distress Results - Labs CBC & Chem 7: 10/18/16 04:34 10/18/16 04:34 Labs: Laboratory Last Values WBC 3.9 K/mm3 (4.5-11.0) L 10/18/16 04:34 RBC 3.60 M/mm3 (3.65-5.03) L 10/18/16 04:34 Hgb 10.7 gm/dl (11.8-15.2) L 10/18/16 04:34 Hct 33.0 % (35.5-45.6) L 10/18/16 04:34 MCV 92 fl (84-94) 10/18/16 04:34 MCH 30 pg (28-32) 10/18/16 04:34 MCHC 33 % (32-34) 10/18/16 04:34 RDW 15.8 % (13.2-15.2) H 10/18/16 04:34 Plt Count 211 K/mm3 (140-440) 10/18/16 04:34 Lymph % (Auto) 17.0 % (13.4-35.0) 10/17/16 03:48 [place] % (Auto) 4.6 % (0.0-7.3) 10/17/16 03:48 Eos % (Auto) 0.2 % (0.0-4.3) 10/17/16 03:48 Baso % (Auto) 0.4 % (0.0-1.8) 10/17/16 03:48 Lymph # 1.2 K/mm3 (1.2-5.4) 10/17/16 03:48 [place] # 0.3 K/mm3 (0.0-0.8) 10/17/16 03:48 Eos # 0.0 K/mm3 (0.0-0.4) 10/17/16 03:48 Baso # 0.0 K/mm3 (0.0-0.1) 10/17/16 03:48 Seg Neutrophils % 77.8 % (40.0-70.0) H 10/17/16 03:48 Seg Neutrophils # 5.3 K/mm3 (1.8-7.7) 10/17/16 03:48 Sodium 135 mmol/L (137-145) L 10/18/16 04:34 Potassium 4.2 mmol/L (3.6-5.0) 10/18/16 04:34 Chloride 100.3 mmol/L (98-107) 10/18/16 04:34 Carbon Dioxide 22 mmol/L (22-30) 10/18/16 04:34 Anion Gap 17 mmol/L 10/18/16 04:34 BUN 12 mg/dL (9-20) 10/18/16 04:34 Creatinine 1.4 mg/dL (0.8-1.5) 10/18/16 04:34 Estimated GFR > 60 ml/min 10/18/16 04:34 BUN/Creatinine Ratio 8.57 % 10/18/16 04:34 Glucose 129 mg/dL (75-100) H 10/18/16 04:34 Calcium 7.9 mg/dL (8.4-10.2) L 10/18/16 04:34 Total Bilirubin 1.0 mg/dL (0.1-1.2) 10/20/16 12:37 Direct Bilirubin 0.3 mg/dL (0-0.2) H 10/20/16 12:37 Indirect Bilirubin 0.7 mg/dL 10/20/16 12:37 AST 74 units/L (5-40) H 10/20/16 12:37 ALT 35 units/L (7-56) 10/20/16 12:37 Alkaline Phosphatase 87 units/L (35-129) 10/20/16 12:37 Total Protein 6.5 g/dL (6.3-8.2) 10/20/16 12:37 Albumin 3.2 g/dL (3.9-5) L 10/20/16 12:37 Albumin/Globulin Ratio 1.0 % 10/20/16 12:37 Amylase 71 units/L (27-131) 10/16/16 13:10 Lipase 28 units/L (13-60) 10/16/16 13:10 Urine Color Nancy (Yellow) 10/16/16 14:34 Urine Turbidity Cloudy (Clear) 10/16/16 14:34 Urine pH 5.0 (5.0-7.0) 10/16/16 14:34 Ur Specific [place] 1.017 (1.003-1.030) 10/16/16 14:34 Urine Protein 30 mg/dl mg/dL (Negative) 10/16/16 14:34 Urine Glucose (UA) Neg mg/dL (Negative) 10/16/16 14:34 Urine Ketones Neg mg/dL (Negative) 10/16/16 14:34 Urine Blood Neg (Negative) 10/16/16 14:34 Urine Nitrite Neg (Negative) 10/16/16 14:34 Urine Bilirubin Neg (Negative) 10/16/16 14:34 Urine Urobilinogen 2.0 mg/dL (<2.0) 10/16/16 14:34 Ur Leukocyte Esterase Neg (Negative) 10/16/16 14:34 Urine WBC (Auto) 6.0 /HPF (0.0-6.0) 10/16/16 14:34 Urine RBC (Auto) 5.0 /HPF (0.0-6.0) 10/16/16 14:34 U Epithel Cells (Auto) 2.0 /HPF (0-13.0) 10/16/16 14:34 Urine Bacteria (Auto) 1+ /HPF (Negative) 10/16/16 14:34 Urine Mucus Few /HPF 10/16/16 14:34
[2016-10-21] MEDS: D5W/0.45% NACL/KCL 20 MEQ 1,000 ML IV SCH (00:25)
--- NOTE | 2016-10-21 04:10 | Progress Note ---
Subjective Patient Reports: Positive: feels better, pain is less, tolerating liquids well Narrative: seen yesterday , doing fine liver panel WNL , will see PRN .to advance diet, Objective Vital Signs - 12hr 10/20/16 10/20/16 10/21/16 16:40 22:43 01:25 Temperature 98.3 F 100.2 F H 102.9 F H Pulse Rate [ 83 115 H 103 H Left From Monitor] Respiratory 18 20 20 Rate Blood Pressure 99/69 111/69 113/69 [Left Arm] O2 Sat by Pulse 96 100 100 Oximetry - Labs 10/18/16 04:34 10/18/16 04:34 Diabetes panel 10/20/16 Range/Units 12:37 AST 74 H (5-40) units/L ALT 35 (7-56) units/L Alkaline Phosphatase 87 (35-129) units/L Total Protein 6.5 (6.3-8.2) g/dL Albumin 3.2 L (3.9-5) g/dL Calcium panel 10/20/16 Range/Units 12:37 Albumin 3.2 L (3.9-5) g/dL Adrenal panel 10/20/16 Range/Units 12:37 Total Bilirubin 1.0 (0.1-1.2) mg/dL AST 74 H (5-40) units/L ALT 35 (7-56) units/L Alkaline Phosphatase 87 (35-129) units/L Total Protein 6.5 (6.3-8.2) g/dL Albumin 3.2 L (3.9-5) g/dL
[2016-10-21] MEDS: ZOSYN/NS 4.5GM/100ML 100 ML IV SCH (06:33)
--- NOTE | 2016-10-21 07:39 | Discharge Summary ---
Providers - Providers Date of Admission: 10/16/16 17:36 Attending physician: BHUPINDER HAYWARD MD 10/16/16 20:48 Consult to Physician [CONS] Routine Consulting Provider: JAMES DAVILA Reason For Exam: cholecystitis Place consult to:: cell phone Notified:: yes Phone number called:: [phone] Was contact made?: Yes If yes, spoke with:: Time called:: 08:55 Primary care physician: [employer] Hospitalization Condition: Fair Pertinent studies: 10/26/2016 CT abdomen and pelvis without contrast: 6 mm nodule seen in right middle lobe lungs and further evaluation with chest CT is recommended to assess for any larger nodule. Changes of acute cholecystitis or suspected without biliary ductal dilatation. Pancreatic ductal dilatation seen could be sequelae of prior pancreatitis but obstructing lesion in the head of the pain continues cannot be excluded. Furthermore, there is a vague hypodensity in the mid right kidney. Further evaluation with contrast enhanced MRI is recommended to evaluate these abnormalities. Procedures: [facility] course: Patient is a 61-year-old man with a history of seizure disorder, hypertension, coronary artery disease, pancreatitis and tobacco dependency who presents with abdominal pain. He was found to have acute cholecystitis, he was treated with IV antibiotics, he went on to have cardiology evaluation and found him to be moderate risk for moderate risk procedure. He went on to have cholecystectomy on generator in 2016. He was continued on the rest of his home medications, he was counseled for tobacco dependence greater than 10 minutes, verbalized understanding. Of she did have a slight increase in creatinine, due to vasomotor nephropathy, he was treated with IV fluids and improved. Discharge Diagnosis 1. Sepsis/ Acute cholecystitis 2. Seizure disorder: Continue Kera 3. Hypertension, chronic and stable 4. Tobacco dependence: Cessation Counseling done 5. Vasomotor nephropathy: improved with IVF Disposition: DISCHARGED TO HOME OR SELFCARE Time spent for discharge: 35 minutes Core Measure Documentation - Palliative Care Palliative Care/ Comfort Measures: Not Applicable - Core Measures Any of the following diagnoses?: none Exam - Constitutional Vitals: Temp Pulse Resp BP Pulse Ox 98.0 F 82 20 96/70 98 10/21/16 05:56 10/21/16 05:56 10/21/16 05:56 10/21/16 05:56 10/21/16 05:56 General appearance: Present: no acute distress, well-nourished - EENT Eyes: Present: PERRL ENT: hearing intact, clear oral mucosa - Neck Neck: Present: supple, normal ROM - Respiratory Respiratory effort: normal Respiratory: bilateral: CTA - Cardiovascular Heart Sounds: Present: S1 & S2. Absent: rub, click - Extremities Extremities: pulses symmetrical, No edema Peripheral Pulses: within normal limits - Abdominal General gastrointestinal: Present: soft, non-tender, non-distended, normal bowel sounds Male genitourinary: Present: normal - Integumentary Integumentary: Present: clear, warm, dry - Musculoskeletal Musculoskeletal: gait normal, strength equal bilaterally - Psychiatric Psychiatric: appropriate mood/affect, intact judgment & insight - Neurologic Neurologic: CNII-XII intact, moves all extremities Plan Follow up with: PRIMARY CARE, [Primary Care Provider] - 3-5 Days
[2016-10-21 08:44] VITALS: BP 119/86
[2016-10-21] MEDS: HEPARIN SUB-Q SCH (09:29)
[2016-10-21] MEDS: KEPPRA 750 MG in D5W 100 ML IV SCH (11:22)
[2016-10-21] MEDS: MORPHINE IV PRN (11:26)
[2016-10-21] MEDS ORDERED: KEPPRA PO SCH (22:00)
[2016-10-22] MEDS ORDERED: LEVAQUIN IV ONE (20:14)
[2016-10-22] MEDS ORDERED: NORVASC ONE (20:14)
[2016-10-22] MEDS ORDERED: PLAVIX ONE (20:14)
== END 2016-10-21 15:50 | disposition home or self-care (01) | DRG 853 ==
LOC: ED 12:21 → 2B-SURG 17:36
PROVIDERS: ADMIT Internal Medicine; ATTEND Internal Medicine
PROC: 0FT44ZZ Resection of Gallbladder, Percutaneous Endoscopic Approach (ICD-10-PCS; principal; 2016-10-19)
DX: A41.9 Sepsis, unspecified organism (principal); N17.0 Acute kidney failure with tubular necrosis; K81.0 Acute cholecystitis; I10 Essential (primary) hypertension; G40.909 Epilepsy, unspecified, not intractable, without status epilepticus; F17.200 Nicotine dependence, unspecified, uncomplicated; I25.10 Atherosclerotic heart disease of native coronary artery without angina pectoris; Z88.6 Allergy status to analgesic agent; Z82.49 Family history of ischemic heart disease and other diseases of the circulatory system
CPT/HCPCS: 36415; 71020; 74176; 78226; 80048; 80053; 80074; 81001; 82150; 83690; 85025; 85027; 87040; 88304; 93005; 93010; 96361; 96365; A9537; C9113; J0360; J1644; J1650; J1953; J1956; J2250; J2270; J2405; J2543; J2704; J2710; J7030; J7042

== ENCOUNTER 2016-10-22 10:22 | Inpatient (IN) | payer OTHER ==
[2016-10-22] MEDS ORDERED: LEVAQUIN 500MG/100ML 100 ML IV ONE (11:15)
[2016-10-22] MEDS ORDERED: NACL 0.9% 1000 ML 1,000 ML IV ONE (11:15)
--- NOTE | 2016-10-22 11:51 | XRay Report ---
PORTABLE CHEST: An AP portable view of the chest demonstrates a normal cardiac contour considering the limits of this technique. The lungs are clear but hypoventilated with no evidence of infiltrate, fluid or failure. IMPRESSION: Normal portable chest.
[2016-10-22 12:12] LABS: INR 1.09 (0.87-1.13)
[2016-10-22 12:13] LABS: Partial Thromboplastin Time 34.9 Sec. (24.2-36.6)
[2016-10-22] MEDS ORDERED: TYLENOL ONE (12:16)
[2016-10-22 12:24] LABS: Hematocrit 29.8 % (35.5-45.6); Hemoglobin 9.8 gm/dl (11.8-15.2); Mean Corpuscular HGB Conc 33 % (32-34); Mean Corpuscular Hemoglobin 30 pg (28-32); Mean Corpuscular Volume 92 fl (84-94); Platelet Count 449 K/mm3 (140-440); Red Blood Count 3.24 M/mm3 (3.65-5.03); Red Cell Distribution Width 16.6 % (13.2-15.2); White Blood Count 12.9 K/mm3 (4.5-11.0)
[2016-10-22 12:26] LABS: Anion Gap 20 mmol/L; Blood Urea Nitrogen 15 mg/dL (9-20); Carbon Dioxide 18 mmol/L (22-30); Chloride 103.1 mmol/L (98-107); Glucose 126 mg/dL (75-100); Potassium 4.1 mmol/L (3.6-5.0); Sodium 137 mmol/L (137-145)
[2016-10-22 12:28] LABS: Albumin 2.9 g/dL (3.9-5); Albumin/Globulin Ratio 0.8 %; Bilirubin,Direct 0.2 mg/dL (0-0.2); Bilirubin,Indirect 0.5 mg/dL; Bilirubin,Total 0.7 mg/dL (0.1-1.2); Total Protein 6.7 g/dL (6.3-8.2)
--- NOTE | 2016-10-22 12:36 | Admit Criteria Form ---
Admission Criteria Documentation: PLEURAL EFFUSION Clinical Indications for Admission to Inpatient Care (Place 'X' for any and all applicable criteria): Admission is indicated for ANY ONE of the following (1)(2)(3): [X]I. Pneumonia-related effusion requiring drainage as indicated by ANY ONE of the following [A]: [X ]a) Large pleural effusion (symptomatic or greater than one-half of hemithorax) [ ]b) Loculated effusion [ ]c) Pleural thickening [ ]d) Pleural fluid analysis results, including ANY ONE of the following: [ ]i) Positive Gram stain or culture for bacteria [ ]ii) Pus [ ]iii) pH less than 7.20 [ ]II. Inpatient admission required rather than observation care (Also use Pleural Effusion: Observation Care criteria as appropriate) because of ANY ONE of the following: [ ]a) Hemodynamic instability that is severe or persistent [ ]b) Respiratory distress that is severe or persistent [ ]c) Complication of drainage (e.g., pneumothorax) that requires inpatient care [ ]d) Etiology that requires inpatient care (e.g., pulmonary embolism , trauma) [ ]e) Severe pain requiring acute inpatient management [ ]f) Supplemental O2 or respiration drug for over 24 hrs that are performable only in an inpatient setting [ ]g) Chest tube placement with active evacuation (e.g., suction, drainage) [ ]h) Pulmonary artery catheter monitoring [ ]i) Epidural analgesia (8) [ ]j) Continuous IV infusion of anticoagulation, platelet inhibitor, vasoactive, or antiarrhythmic medication. [ ]k) Other condition, treatment or monitoring requiring inpatient admission [ ]l) Immediate inpatient surgery [ ]III. Hemothorax [ ]IV. Empyema [ ]V. Pleural effusion with concomitant pneumothorax [ ]. Recurrent or malignant pleural effusion requiring pleurodesis (4) Extended stay beyond goal length of stay may be needed for (27)(28): [ ]a) Empyema or complicated parapneumonic effusion (24)(29) [ ]b) Malignant pleural effusion (4) [ ]c) Pleural effusion due to trauma or perforated esophagus [ ]d) Pleural effusion due to pulmonary embolism (30) [ ]e) Clinically significant re-expansion pulmonary edema [ ]f) Hemothorax [ ]g) Renal failure [ ]h) Trapped lung (e.g., benign or malignant thickened pleura preventing lung re-expansion) (31) [ ]i) Underlying etiology necessitates ongoing inpatient care (e.g., pneumonia, heart failure, malignancy) [ ]j) Complications of thoracentesis, thoracostomy tube, or pleural cath. placement The original [facility] [employer] content created by [facility] has been revised. The portions of the content which have been revised are identified through the use of italic text or in bold, and [facility] has neither reviewed nor approved the modified material. All other unmodified content is copyright [facility]. Please see references footnoted in the original [facility] [employer] edition 2016 Admission Criteria Met: Yes
[2016-10-22 12:52] LABS: Basophils % (Manual) 0 % (0.0-1.8); Blastocytes % (Manual) 0 %; RBC Morphology Normal
[2016-10-22 12:53] LABS: Diff Status Complete
[2016-10-22 13:05] LABS: Bilirubin,Urine NEG (Negative); Blood,Urine NEG (Negative); Ketones,Urine NEG (Negative); Leukocyte Esterase,Urine NEG (Negative); Mucus,Urine FEW /HPF; Nitrite,Urine NEG (Negative); Protein,Urine <15 mg/dL mg/dL (Negative)
--- NOTE | 2016-10-22 13:08 | Nuclear Medicine Report ---
LUNG SCAN, VENTILATION AND PERFUSION: History: Right sided chest pain. Technique: 5mci of Tc99m MAA was infused for the perfusion images. 15mci XE 133 gas was inhaled for the ventilatory images. Correlation is made with a chest x-ray dated 10/22/16. Findings: Inhalation of Xenon gas demonstrates a normal distribution of the activity throughout both lungs. The wash out phases show no focal retention of activity. After injection of Technetium 99m macroaggregated albumin gamma camera imaging of the lungs in multiple projections demonstrates normal pulmonary contours with a homogeneous distribution of activity. No focal areas of perfusion deficiency are identified. IMPRESSION: Low probability for pulmonary embolus.
--- NOTE | 2016-10-22 13:56 | Emergency Department Report ---
[id number] ROSAURA/SHAKING Time Seen by Provider: 10/22/16 11:05 Source: patient, family Mode of arrival: Wheelchair Limitations: No Limitations - History of Present Illness Initial comments: The patient complains of difficulty in breathing since this morning. She's had some chills for the past day but did not take his temperature. Complain of pain in the right lower thoracic area mostly anteriorly. He is status post laparoscopic cholecystectomy 2 days ago. He states he's not had pain like this before nor shortness of breath. Overall he is a poor historian. Productive sputum. He is not complaining of cough. He denies leg pain or swelling. The patient's discharge summary indicates that he had a CT showing a 6 mm node she'll of the right middle lobe. He also had changes of acute cholecystitis and a hepatobiliary scan that was consistent with acute cholecystitis. He had pancreatic ductal dilatation but no obstructing lesions seen. He underwent a lap cholecystectomy by Dr. Saleh. Dr. Saleh's report states that he left a piece of Surgicel in the bed of the gallbladder at the operation was otherwise uneventful and successful. Patient's discharge diagnosis was sepsis secondary to acute cholecystitis. He has a history of a seizure disorder, hypertension and a nephropathy. -: Sudden Location: chest, right Radiation: non-radiation Severity scale (0 -10): 8 Quality: aching Consistency: constant Improves with: none Worsens with: none Associated Symptoms: shortness of breath Treatments Prior to Arrival: none - Related Data Home Medications Medication Instructions Recorded Confirmed Last Taken Clopidogrel Bisulfate [Plavix] 75 mg PO QDAY 10/16/16 10/22/16 Unknown Lisinopril/Hydrochlorothiazide 1 tab PO QDAY 10/16/16 10/22/16 Unknown [Zestoretic 20-25 mg] Metoprolol Xl [Metoprolol 50 mg PO QDAY 10/16/16 10/22/16 Unknown SUCCINATE ER TAB] Nitroglycerin [Nitrostat] 0.4 mg SL Q5M PRN 10/16/16 10/22/16 Unknown Omeprazole 20 mg PO QDAY 10/16/16 10/22/16 Unknown amLODIPine [Norvasc] 10 mg PO DAILY 10/16/16 10/22/16 Unknown levETIRAcetam [Keppra TAB] 750 mg PO BID 10/16/16 10/22/16 Unknown Previous Rx's Medication Instructions Recorded Last Taken Type HYDROcodone/APAP 7.5-325 [Harmony 1 each PO Q6HR PRN #30 tablet 10/21/16 Unknown Rx 7.5-325 mg TAB] Allergies Allergy/AdvReac Type Severity Reaction Status Date / Time hydromorphone HCl Allergy Hives Verified 10/16/16 12:36 [From Dilaudid] ED Review of Systems ROS: Stated complaint: ROSAURA/SHAKING Other details as noted in HPI Constitutional: denies: chills, fever Eyes: denies: eye pain, eye discharge, vision change ENT: denies: ear pain, throat pain Respiratory: shortness of breath. denies: cough, wheezing Cardiovascular: chest pain. denies: palpitations Endocrine: no symptoms reported Gastrointestinal: denies: abdominal pain, nausea, diarrhea Genitourinary: denies: urgency, dysuria Musculoskeletal: denies: back pain, joint swelling, arthralgia Skin: denies: rash, lesions Neurological: denies: headache, weakness, paresthesias Psychiatric: denies: anxiety, depression Hematological/Lymphatic: denies: easy bleeding, easy bruising ED Past Medical Hx - Past Medical History Hx Hypertension: Yes Hx Heart Attack/AMI: Yes (2014) Hx Renal Disease: No Hx Seizures: Yes (LAST SEIZURE 04/2016, TAKES KEPPRA) Hx Asthma: No Hx COPD: No Hx HIV: No Additional medical history: gout, pancreatitis - Surgical History Hx Cholecystectomy: Yes - Social History Smoking Status: Current Every Day Smoker Substance Use Type: None Other Social History: Patient states he stopped drinking alcohol quite some time ago. The patient's admits that he was a heavy drinker. - Medications Home Medications: Home Medications Medication Instructions Recorded Confirmed Last Taken Type Clopidogrel Bisulfate [Plavix] 75 mg PO QDAY 10/16/16 10/22/16 Unknown History Lisinopril/Hydrochlorothiazide 1 tab PO QDAY 10/16/16 10/22/16 Unknown History [Zestoretic 20-25 mg] Metoprolol Xl [Metoprolol 50 mg PO QDAY 10/16/16 10/22/16 Unknown History SUCCINATE ER TAB] Nitroglycerin [Nitrostat] 0.4 mg SL Q5M PRN 10/16/16 10/22/16 Unknown History Omeprazole 20 mg PO QDAY 10/16/16 10/22/16 Unknown History amLODIPine [Norvasc] 10 mg PO DAILY 10/16/16 10/22/16 Unknown History levETIRAcetam [Keppra TAB] 750 mg PO BID 10/16/16 10/22/16 Unknown History HYDROcodone/APAP 7.5-325 [Harmony 1 each PO Q6HR PRN #30 tablet 10/21/16 10/22/16 Unknown Rx 7.5-325 mg TAB] ED Physical Exam - General Limitations: No Limitations General appearance: alert, in no apparent distress - Head Head exam: Present: atraumatic, normocephalic - Eye Eye exam: Present: normal appearance, PERRL, EOMI. Absent: scleral icterus - ENT ENT exam: Present: mucous membranes moist - Neck Neck exam: Present: normal inspection - Respiratory Respiratory exam: Present: normal lung sounds bilaterally. Absent: respiratory distress - Cardiovascular Cardiovascular Exam: Present: regular rate, normal rhythm. Absent: systolic murmur, diastolic murmur, rubs, gallop - GI/Abdominal GI/Abdominal exam: Present: soft, normal bowel sounds. Absent: distended, tenderness, guarding, rebound, rigid - Rectal Rectal exam: Present: deferred - Extremities Exam Extremities exam: Present: normal inspection - Back Exam Back exam: Present: normal inspection - Neurological Exam Neurological exam: Present: alert, oriented X3, CN II-XII intact. Absent: motor sensory deficit - Psychiatric Psychiatric exam: Present: normal affect, normal mood - Skin Skin exam: Present: warm, dry, intact, normal color. Absent: rash ED Course Vital Signs 10/22/16 10/22/16 10/22/16 10:36 12:08 13:00 Temperature 97.8 F 100.8 F H Pulse Rate 125 H 110 H 89 Respiratory 24 22 18 Rate Blood Pressure 121/78 Blood Pressure 98/58 109/61 [Left] O2 Sat by Pulse 94 94 96 Oximetry 10/22/16 14:09 Temperature Pulse Rate 81 Respiratory 18 Rate Blood Pressure Blood Pressure 104/59 [Left] O2 Sat by Pulse 98 Oximetry - Reevaluation(s) Reevaluation #1: A chest x-ray suggested some right mid field abnormality. The radiologist however read it is within normal limits. Apparently a CT did show a note field. The hemidiaphragm is somewhat elevated. No acute process was finally found. A VQ scan was obtained which was low probability of pulmonary embolism. A CT of the chest and abdomen without contrast considering the patient's creatinine of 1.5 is pending. The patient was given a dose of antibiotics. He has a rather elevated d-dimer. However he is postop cholecystectomy. My plan is admission for further care and evaluation. Dr. Alfredo has been informed. The patient's lactic acid level was reassuring. He does have a low-grade fever and a sinus tachycardia. 10/22/16 14:17 10/22/16 14:25 ED Medical Decision Making - Lab Data Result diagrams: 10/22/16 11:40 10/22/16 11:40 Laboratory Results - last 24 hr 10/22/16 10/22/16 10/22/16 11:40 11:40 11:40 WBC 12.9 H RBC 3.24 L Hgb 9.8 L Hct 29.8 L MCV 92 MCH 30 MCHC 33 RDW 16.6 H Plt Count 449 H Lymph % (Auto) Writer [employer] Price % (Auto) Writer [employer] Eos % (Auto) [employer] Baso % (Auto) Writer [employer] Lymph # Writer [employer] Price # Writer [employer] Publications Eos # Writer [employer] Baso # Writer [employer] Publications Add Manual Diff Complete Total Counted 100 Seg Neutrophils % Writer [employer] Seg Neuts % (Manual) 86.0 H Band Neutrophils % 10.0 Lymphocytes % (Manual) 2.0 L Reactive Lymphs % (Man) 0 Monocytes % (Manual) 1.0 Eosinophils % (Manual) 1.0 Basophils % (Manual) 0 Metamyelocytes % 0 Myelocytes % 0 Promyelocytes % 0 Blast Cells % 0 Nucleated RBC % Not Reportable Seg Neutrophils # Writer [employer] Seg Neutrophils # Man 11.1 H Band Neutrophils # 1.3 Lymphocytes # (Manual) 0.3 L Abs React Lymphs (Man) 0.0 Monocytes # (Manual) 0.1 Eosinophils # (Manual) 0.1 Basophils # (Manual) 0.0 Metamyelocytes # 0.0 Myelocytes # 0.0 Promyelocytes # 0.0 Blast Cells # 0.0 WBC Morphology Not Reportable Hypersegmented Neuts Not Reportable Hyposegmented Neuts Not Reportable Hypogranular Neuts Not Reportable Smudge Cells Not Reportable Toxic Granulation Not Reportable Toxic Vacuolation Not Reportable Dohle Bodies Not Reportable Pelger-Huet Anomaly Not Reportable Don Rods Not Reportable Platelet Estimate Appears normal Clumped Platelets Not Reportable Plt Clumps, EDTA Not Reportable Large Platelets Not Reportable Giant Platelets Not Reportable Platelet Satelliting Not Reportable Plt Morphology Comment Not Reportable RBC Morphology Normal Dimorphic RBCs Not Reportable Polychromasia Not Reportable Hypochromasia Not Reportable Poikilocytosis Not Reportable Anisocytosis Not Reportable Microcytosis Not Reportable Macrocytosis Not Reportable Spherocytes Not Reportable Pappenheimer Bodies Not Reportable Sickle Cells Not Reportable Target Cells Not Reportable Tear Drop Cells Not Reportable Ovalocytes Not Reportable Helmet Cells Not Reportable Johns-Belcourt Bodies Not Reportable [place] Rings Not Reportable Theo Cells Not Reportable Bite Cells Not Reportable Crenated Cell Not Reportable Elliptocytes Not Reportable Acanthocytes (Spur) Not Reportable Rouleaux Not Reportable Hemoglobin C Crystals Not Reportable Schistocytes Not Reportable Malaria parasites Not Reportable Abraham Bodies Not Reportable Hem Pathologist Commnt No PT 14.0 INR 1.09 APTT 34.9 D-Dimer 4069.48 H Carbon Dioxide 18 L BUN 15 Creatinine 1.5 Estimated GFR 58 BUN/Creatinine Ratio 10.00 Glucose 126 H Lactic Acid Calcium 8.0 L Total Bilirubin Direct Bilirubin Indirect Bilirubin AST ALT Alkaline Phosphatase Ammonia Troponin T < 0.010 NT-Pro-B Natriuret Pep Total Protein Albumin Albumin/Globulin Ratio Urine Color Urine Turbidity Urine pH Ur Specific [place] Urine Protein Urine Glucose (UA) Urine Ketones Urine Blood Urine Nitrite Urine Bilirubin Urine Urobilinogen Ur Leukocyte Esterase Urine WBC (Auto) Urine RBC (Auto) U Epithel Cells (Auto) Urine Mucus 10/22/16 10/22/16 10/22/16 11:40 11:40 11:40 WBC RBC Hgb Hct MCV MCH MCHC RDW Plt Count Lymph % (Auto) Price % (Auto) Eos % (Auto) Baso % (Auto) Lymph # Price # Eos # Baso # Add Manual Diff Total Counted Seg Neutrophils % Seg Neuts % (Manual) Band Neutrophils % Lymphocytes % (Manual) Reactive Lymphs % (Man) Monocytes % (Manual) Eosinophils % (Manual) Basophils % (Manual) Metamyelocytes % Myelocytes % Promyelocytes % Blast Cells % Nucleated RBC % Seg Neutrophils # Seg Neutrophils # Man Band Neutrophils # Lymphocytes # (Manual) Abs React Lymphs (Man) Monocytes # (Manual) Eosinophils # (Manual) Basophils # (Manual) Metamyelocytes # Myelocytes # Promyelocytes # Blast Cells # WBC Morphology Hypersegmented Neuts Hyposegmented Neuts Hypogranular Neuts Smudge Cells Toxic Granulation Toxic Vacuolation Dohle Bodies Pelger-Huet Anomaly Don Rods Platelet Estimate Clumped Platelets Plt Clumps, EDTA Large Platelets Giant Platelets Platelet Satelliting Plt Morphology Comment RBC Morphology Dimorphic RBCs Polychromasia Hypochromasia Poikilocytosis Anisocytosis Microcytosis Macrocytosis Spherocytes Pappenheimer Bodies Sickle Cells Target Cells Tear Drop Cells Ovalocytes Helmet Cells Johns-Belcourt Bodies [place] Rings [place] Cells Bite Cells Crenated Cell Elliptocytes Acanthocytes (Spur) Rouleaux Hemoglobin C Crystals Schistocytes Malaria parasites Abraham Bodies Hem Pathologist Commnt PT INR APTT D-Dimer Carbon Dioxide BUN Creatinine Estimated GFR BUN/Creatinine Ratio Glucose Lactic Acid 1.5 Calcium Total Bilirubin 0.7 Direct Bilirubin 0.2 Indirect Bilirubin 0.5 AST 35 ALT 29 Alkaline Phosphatase 82 Ammonia 40.0 Troponin T NT-Pro-B Natriuret Pep 4295 H Total Protein 6.7 Albumin 2.9 L Albumin/Globulin Ratio 0.8 Urine Color Urine Turbidity Urine pH Ur Specific [place] Urine Protein Urine Glucose (UA) Urine Ketones Urine Blood Urine Nitrite Urine Bilirubin Urine Urobilinogen Ur Leukocyte Esterase Urine WBC (Auto) Urine RBC (Auto) U Epithel Cells (Auto) Urine Mucus 10/22/16 11:50 WBC RBC Hgb Hct MCV MCH MCHC RDW Plt Count Lymph % (Auto) Price % (Auto) Eos % (Auto) Baso % (Auto) Lymph # Price # Eos # Baso # Add Manual Diff Total Counted Seg Neutrophils % Seg Neuts % (Manual) Band Neutrophils % Lymphocytes % (Manual) Reactive Lymphs % (Man) Monocytes % (Manual) Eosinophils % (Manual) Basophils % (Manual) Metamyelocytes % Myelocytes % Promyelocytes % Blast Cells % Nucleated RBC % Seg Neutrophils # Seg Neutrophils # Man Band Neutrophils # Lymphocytes # (Manual) Abs React Lymphs (Man) Monocytes # (Manual) Eosinophils # (Manual) Basophils # (Manual) Metamyelocytes # Myelocytes # Promyelocytes # Blast Cells # WBC Morphology Hypersegmented Neuts Hyposegmented Neuts Hypogranular Neuts Smudge Cells Toxic Granulation Toxic Vacuolation Dohle Bodies Pelger-Huet Anomaly Don Rods Platelet Estimate Clumped Platelets Plt Clumps, EDTA Large Platelets Giant Platelets Platelet Satelliting Plt Morphology Comment RBC Morphology Dimorphic RBCs Polychromasia Hypochromasia Poikilocytosis Anisocytosis Microcytosis Macrocytosis Spherocytes Pappenheimer Bodies Sickle Cells Target Cells Tear Drop Cells Ovalocytes Helmet Cells Johns-Belcourt Bodies [place] Rings Theo Cells Bite Cells Crenated Cell Elliptocytes Acanthocytes (Spur) Rouleaux Hemoglobin C Crystals Schistocytes Malaria parasites Abraham Bodies Hem Pathologist Commnt PT INR APTT D-Dimer Carbon Dioxide BUN Creatinine Estimated GFR BUN/Creatinine Ratio Glucose Lactic Acid Calcium Total Bilirubin Direct Bilirubin Indirect Bilirubin AST ALT Alkaline Phosphatase Ammonia Troponin T NT-Pro-B Natriuret Pep Total Protein Albumin Albumin/Globulin Ratio Urine Color Yellow Urine Turbidity Clear Urine pH 5.0 Ur Specific [place] 1.018 Urine Protein <15 mg/dl Urine Glucose (UA) Neg Urine Ketones Neg Urine Blood Neg Urine Nitrite Neg Urine Bilirubin Neg Urine Urobilinogen 2.0 Ur Leukocyte Esterase Neg Urine WBC (Auto) 2.0 Urine RBC (Auto) 2.0 U Epithel Cells (Auto) < 1.0 Urine Mucus Few NA 137 K 4.1 CL 103.1 AG 20 - EKG Data -: EKG Interpreted by Me EKG shows normal: axis Rate: tachycardia (sinus tachycardia) - EKG Data Interpretation: other (somewhat short NC interval. T wave abnormalities mostly laterally consider ischemia. Sinus tachycardia. Inferior Q's. Motion artifact.) - Radiology Data Radiology results: report reviewed interpreted by me: Reports reviewed above and clinical impressions. CTA chest and abdomen showed right pleural effusion some aashish-hepatic ascites. No other acute process. I'll place consult to Dr. Saleh. He can decide if he wants to pursue any postoperative workup. Critical care attestation.: If time is entered above; I have spent that time in minutes in the direct care of this critically ill patient, excluding procedure time. ED Disposition Clinical Impression: Elevated d-dimer, Status post cholecystectomy, Pleural effusion on right, Ascites Chest pain Qualifiers: Chest pain type: unspecified Qualified Code(s): R07.9 - Chest pain, unspecified Disposition: OP ADMITTED IP TO THIS HOSP Is pt being admited?: Yes Does the pt Need Aspirin: Yes Condition: Stable Instructions: Chest Pain (ED) Referrals: PRIMARY CARE, [Primary Care Provider] - 3-5 Days Time of Disposition: 14:25
[2016-10-22] MEDS ORDERED: BABY ASPIRIN PO ONE (14:27)
--- NOTE | 2016-10-22 14:53 | Cat Scan Report ---
CT CHEST WITHOUT CONTRAST History: Right chest pain. Recent cholecystectomy. Findings: There is mild cardiomegaly and small right pleural effusion. Trace left pleural effusion is also noted. Segmental atelectasis is noted in the medial right lower lobe. Otherwise, lungs are well-aerated. No evidence for mass, large consolidation or pneumothorax. The tracheobronchial tree is within normal limits. The thoracic cage is intact. Impression: Mild cardiomegaly and small bilateral pleural effusions. Segmental atelectasis in right lower lobe. Correlate for mild volume overload/CHF.
--- NOTE | 2016-10-22 14:57 | Cat Scan Report ---
CT ABDOMEN PELVIS WITHOUT CONTRAST History: Abdominal pain, recent cholecystectomy. Findings: Cholecystectomy has been performed since 10/16/16. There is mild gas and debris in the gallbladder fossa which is probably secondary to recent surgery. The common bile duct appears normal caliber. There is moderate prominence of the pancreatic duct which is unchanged. Otherwise, the pancreas is within normal limits. The liver parenchyma is unremarkable on noncontrast exam. Trace perihepatic ascites is noted. The spleen, kidneys, adrenal glands, and bowel loops are unremarkable. I believe I see the appendix in the right side of the abdomen which is unremarkable. There are 2 diverticula measuring up to 2 cm projecting from both lateral schneider of the bladder. The bladder is within normal limits otherwise. The prostate is borderline in size. There is mild thoracolumbar spondylosis. No suspicious bony lesion or fracture. Impression: Interval cholecystectomy changes are identified. No obvious biliary dilatation. There is trace perihepatic ascites but no findings highly suggestive of a biliary leak. If further evaluation is needed, a HIDA scan could be obtained.
[2016-10-22] MEDS ORDERED: BABY ASPIRIN ONE (16:40)
[2016-10-22] MEDS ORDERED: TYLENOL PO ONE (17:21)
--- NOTE | 2016-10-22 18:48 | Event Note ---
Date: 10/22/16 See H/p in reports Chf exacerbation Bilateral pleural effusion S/p cholecystectomy Seizure disorder CAD HTN GERD Check ECHO
[2016-10-22] MEDS ORDERED: DULCOLAX PR PRN (18:52)
[2016-10-22] MEDS ORDERED: MILK OF MAGNESIA PO PRN (18:52)
[2016-10-22] MEDS ORDERED: DILAUDID IV PRN (18:52)
[2016-10-22] MEDS ORDERED: AMBIEN PO PRN (18:52)
[2016-10-22] MEDS ORDERED: ZOFRAN IV PRN (18:52)
[2016-10-22] MEDS ORDERED: D5NS 1,000 ML IV SCH (19:00)
[2016-10-22] MEDS ORDERED: DUONEB 0.5 MG-3 MG/3 ML SOLN IH PRN (19:05)
[2016-10-22] MEDS ORDERED: PROVENTIL IH PRN (19:34)
[2016-10-22] MEDS: NORVASC PO SCH (20:28)
[2016-10-22] MEDS: PLAVIX PO SCH (20:29)
[2016-10-22] MEDS ORDERED: NON-FORMULARY (Levetiracetam [Keppra Tab] 750 MG) PO SCH (22:00)
[2016-10-22] MEDS: PEPCID IV SCH (22:00)
[2016-10-22] MEDS: KEPPRA PO SCH (22:00)
[2016-10-22] MEDS: DUONEB 0.5 MG-3 MG/3 ML SOLN IH SCH (22:14)
[2016-10-22] MEDS: NORCO 7.5/325 PO PRN (23:00)
[2016-10-23] MEDS: DUONEB 0.5 MG-3 MG/3 ML SOLN IH SCH ×4 (03:59→20:46)
[2016-10-23] MEDS: NORCO 7.5/325 PO PRN ×2 (06:00→08:40)
[2016-10-23] MEDS: PERCOCET 5/325 PO PRN ×2 (08:40→14:00)
[2016-10-23] MEDS: PLAVIX PO SCH (10:00)
[2016-10-23] MEDS: NORVASC PO SCH (10:00)
[2016-10-23] MEDS ORDERED: NON-FORMULARY (Omeprazole [Omeprazole] 20 MG) PO SCH (10:00)
[2016-10-23] MEDS: PROTONIX PO SCH (10:00)
[2016-10-23] MEDS: PEPCID IV SCH ×2 (10:00→23:30)
[2016-10-23] MEDS: TOPROL XL PO SCH (10:00)
[2016-10-23] MEDS: KEPPRA PO SCH ×2 (10:00→23:30)
[2016-10-23] MEDS: LEVAQUIN 750MG/150ML 150 ML IV SCH (10:15)
--- NOTE | 2016-10-23 21:17 | Progress Note ---
Assessment and Plan - Patient Problems (1) Acute exacerbation of CHF (congestive heart failure) Current Visit: Yes Status: Acute Qualifiers: Congestive heart failure type: combined Qualified Code(s): I50.43 - Acute on chronic combined systolic (congestive) and diastolic (congestive) heart failure Plan to address problem: Check ECHO Lasix 40 q 12h Kcl 20 meq po q12h Cardiology consult (2) Status post cholecystectomy Current Visit: Yes Status: Acute Plan to address problem: No post op complication (3) Seizure disorder Current Visit: Yes Status: Chronic Plan to address problem: on keppra (4) HTN (hypertension) Current Visit: Yes Status: Chronic Qualifiers: Hypertension type: essential hypertension Qualified Code(s): I10 - Essential (primary) hypertension Plan to address problem: cont antihypertensives amlodipine and lisinopril /hctz 20/25 po qd (5) CAD (coronary artery disease) Current Visit: Yes Status: Chronic Qualifiers: Coronary Disease-Associated Artery/Lesion type: craig artery Plan to address problem: on plavix (6) GERD (gastroesophageal reflux disease) Current Visit: Yes Status: Chronic Qualifiers: Esophagitis presence: without esophagitis Qualified Code(s): K21.9 - Gastro -esophageal reflux disease without esophagitis Plan to address problem: on ppi's (7) DVT prophylaxis Current Visit: Yes Status: Acute Plan to address problem: on lovenox Subjective Date of service: 10/23/16 Principal diagnosis: CHF exacerbation Interval history: Symptomatically same .Hypoxic Objective - Constitutional Vitals: Vital Signs - 12hr 10/23/16 10/23/16 10/23/16 09:28 09:31 20:46 Pulse Rate [ 89 91 H Bilateral Throughout] Respiratory 18 18 Rate [Bilateral Throughout] O2 Sat by Pulse 93 Oximetry 10/23/16 20:56 Pulse Rate [ 94 H Bilateral Throughout] Respiratory 18 Rate [Bilateral Throughout] O2 Sat by Pulse Oximetry General appearance: Present: no acute distress, well-nourished - EENT Eyes: PERRL, EOM intact ENT: hearing intact, clear oral mucosa Ears: bilateral: normal - Neck Neck: supple, normal ROM - Respiratory Respiratory effort: normal Respiratory: bilateral: CTA - Breasts Breasts: normal - Cardiovascular Rhythm: regular Heart Sounds: Present: S1 & S2. Absent: gallop, rub Extremities: pulses intact, No edema, normal color, Full ROM - Gastrointestinal General gastrointestinal: Present: soft, non-tender, non-distended, normal bowel sounds - Genitourinary Male genitourinary: normal - Integumentary Integumentary: clear, warm, dry - Musculoskeletal Musculoskeletal: 1, strength equal bilaterally - Neurologic Neurologic: moves all extremities - Psychiatric Psychiatric: memory intact, appropriate mood/affect, intact judgment & insight - Labs CBC & Chem 7: 10/22/16 11:40 10/22/16 11:40
[2016-10-23] MEDS: K-DUR PO SCH (23:30)
--- NOTE | 2016-10-23 23:42 | History and Physical Report ---
CHIEF COMPLAINT: Chills for the past one day and right chest pain. HISTORY OF PRESENT ILLNESS: A 61-year-old male who recently had a laparoscopic cholecystectomy and discharged 2 days ago, comes in for shortness of breath and right-sided chest pain and cough productive of sputum, mucoid to yellow sputum. The patient had a cholecystectomy secondary to acute cholecystitis. The patient had uneventful postop recovery. Chest pain is about 7-8 on a scale of 1-10, increased with inspiration. PAST MEDICAL HISTORY: Significant for coronary artery disease, hypertension, gastroesophageal reflux disease, seizure disorder. CURRENT MEDICATIONS: Plavix 75 mg daily, lisinopril/hydrochlorothiazide 20/25 one tablet daily, metoprolol XL 50 mg daily, Nitrostat 0.4 sublingual p.r.n., omeprazole 20 mg once a day, amlodipine 10 mg once a day, Keppra 750 mg p.o. b.i.d. ALLERGIES: DILAUDID. PAST SURGICAL HISTORY: Cholecystectomy. SOCIAL HISTORY: Smokes about one half a pack a day. Alcohol intermittently stopped some time ago. No marijuana, no drugs. FAMILY HISTORY: Significant for hypertension. REVIEW OF SYSTEMS: CONSTITUTIONAL: No weight loss. No fever. No weight gain. HEENT: No sore throat. No postnasal drip. CARDIOVASCULAR AND RESPIRATORY: Has right-sided chest pain and increased with breathing and cough productive of mucoid to yellow sputum. GASTROINTESTINAL: No nausea, no vomiting, no diarrhea. GENITOURINARY: No dysuria, no flank pain. MUSCULOSKELETAL: No joint pains. No muscle pains. CENTRAL NERVOUS SYSTEM: No syncope, no seizures. SKIN: No rashes. HEMATOLOGIC AND LYMPHATIC: No lymphadenopathy, no easy bruising. ALLERGIC AND IMMUNOLOGIC: No rashes, no urticaria. PSYCHIATRIC: No depression. A 14-point review of systems is done. Other than that chest symptoms mentioned, negative. PHYSICAL EXAMINATION: GENERAL: Middle-aged male, cooperative during examination. VITAL SIGNS: Blood pressure is 113/71, temperature is 98.9, pulse is 107 and 91, respiratory rate is 18. HEENT: Unremarkable. Pupils equal and reactive. NECK: Supple, no lymphadenopathy, no thyromegaly. LUNGS: Clear to auscultation and percussion. Good air entry. CARDIOVASCULAR: S1, S2 heard. No gallop, no murmur, no rub. Apical impulse in left fifth intercostal space and midclavicular line. ABDOMEN: Soft and benign. No hepatosplenomegaly. No guarding, no rigidity. Hernial orifices are normal. EXTREMITIES: Good pedal pulses. No pedal edema. CENTRAL NERVOUS SYSTEM: Alert and oriented x 4, nonfocal exam. LABORATORY DATA: White count is 12,900, H and H is 9.8 and 29.8, platelet count is 449,000. D-dimer is 4069.48. Sodium, potassium, and chloride are pending. BNP is 4295. Albumin is 2.9, low. DIAGNOSTIC DATA: Chest CT shows bilateral pleural effusions, segmental atelectasis in the right lower lobe. Correlate with volume overload and CHF. Chest x-ray normal portable chest. CT of the abdomen shows interval cholecystectomy changes, no obvious biliary dilatation. There is trace perihepatic ascites but no findings highly suggestive of a biliary leak. If further evaluation needed, HIDA should be obtained. Lung perfusion scan in a low probability for pulmonary embolism. ASSESSMENT AND PLAN: 1. Congestive heart failure exacerbation. We will start him on IV Lasix 40 q. 24 and get an echocardiogram. The patient was started on antibiotics as a differential of infectious process of underlying pneumonia, but I doubt there is pneumonia. 2. Seizure disorder. Continue Keppra 750 b.i.d. 3. Hypertension. Continue amlodipine 10 mg daily and metoprolol 50 mg p.o. daily and lisinopril/hydrochlorothiazide 20/25 p.o. daily. 4. Coronary artery disease. Continue Plavix 75 mg p.o. daily. 5. Status post cholecystectomy, doing well, no complications. 6. Deep venous thrombosis prophylaxis, Lovenox 40 mg subcutaneous daily. JOB# [id number] KEVIN/ANN-MARIE
[2016-10-23] MEDS: LASIX IV SCH (23:58)
[2016-10-24] MEDS: DUONEB 0.5 MG-3 MG/3 ML SOLN IH SCH ×4 (04:39→19:56)
[2016-10-24 05:35] LABS: Hematocrit 30.7 % (35.5-45.6); Hemoglobin 9.9 gm/dl (11.8-15.2); Mean Corpuscular HGB Conc 32 % (32-34); Mean Corpuscular Hemoglobin 29 pg (28-32); Mean Corpuscular Volume 91 fl (84-94); Platelet Count 535 K/mm3 (140-440); Red Blood Count 3.37 M/mm3 (3.65-5.03); Red Cell Distribution Width 16.2 % (13.2-15.2); White Blood Count 19.9 K/mm3 (4.5-11.0)
[2016-10-24 05:45] LABS: Albumin 2.8 g/dL (3.9-5); Albumin/Globulin Ratio 0.8 %; BUN/Creatinine Ratio 7.33; Bilirubin,Total 0.8 mg/dL (0.1-1.2); Calcium 7.9 mg/dL (8.4-10.2); Chloride 104.4 mmol/L (98-107); Potassium 4.2 mmol/L (3.6-5.0); Total Protein 6.3 g/dL (6.3-8.2)
[2016-10-24] MEDS ORDERED: LASIX IV SCH (06:00)
[2016-10-24] MEDS: LASIX IV SCH ×2 (06:30→18:00)
[2016-10-24 06:32] LABS: Anisocytosis 1+; Basophils % (Manual) 0 % (0.0-1.8); Blastocytes % (Manual) 0 %; Eosinophils % (Manual) 0 % (0.0-4.3)
[2016-10-24 06:33] LABS: Diff Status Complete; Elliptocytes Few; Platelet Clumps Few
[2016-10-24 06:34] LABS: Platelet Estimate Appears Increased
[2016-10-24] MEDS: PERCOCET 5/325 PO PRN (08:30)
[2016-10-24] MEDS: PROTONIX PO SCH (10:00)
[2016-10-24] MEDS: PEPCID PO SCH ×2 (10:00→22:00)
[2016-10-24] MEDS: KEPPRA PO SCH (10:00)
[2016-10-24] MEDS: K-DUR PO SCH ×2 (10:00→22:00)
[2016-10-24] MEDS: PLAVIX PO SCH (10:00)
[2016-10-24] MEDS: NORVASC PO SCH (10:00)
[2016-10-24] MEDS: TOPROL XL PO SCH (10:00)
--- NOTE | 2016-10-24 10:10 | Progress Note ---
Assessment and Plan Assessment and plan: Assessment (1) Acute exacerbation of CHF (congestive heart failure) possible diastolic Current Visit: Yes Status: Acute Qualifiers: Congestive heart failure type: combined Qualified Code(s): I50.43 - Acute on chronic combined systolic (congestive) and diastolic (congestive) heart failure Plan to address problem: Await ECHO Lasix 40 q 12h Kcl 20 meq po q12h Cardiology consult pending (2) Status post cholecystectomy Current Visit: Yes Status: Acute Plan to address problem: No post op complication Pain on the right upper quadrant could just be post surgical pain. We'll add morphine when necessary for now, we'll also add incentive spirometer (3) Seizure disorder Current Visit: Yes Status: Chronic Plan to address problem: on keppra (4) HTN (hypertension) Current Visit: Yes Status: Chronic Qualifiers: Hypertension type: essential hypertension Qualified Code(s): I10 - Essential (primary) hypertension Plan to address problem: cont antihypertensives amlodipine and lisinopril /hctz 20/25 po qd (5) CAD (coronary artery disease) Current Visit: Yes Status: Chronic Qualifiers: Coronary Disease-Associated Artery/Lesion type: [place] artery Plan to address problem: on plavix (6) GERD (gastroesophageal reflux disease) Current Visit: Yes Status: Chronic Qualifiers: Esophagitis presence: without esophagitis Qualified Code(s): K21.9 - Gastro -esophageal reflux disease without esophagitis Plan to address problem: on ppi's (7) leukocytosis rule out sepsis -Etiology remains unknown. Patient reports no diarrhea. Will broaden antibiotic coverage considering recent abdominal procedure. -Add Flagyl -Continue to monitor no further fever noted in the past 24 hours. -Sinus tachycardia could be secondary to pain (8) moderate protein calorie malnutrition Obtain nutrition consultation. Recommend not have discussed with the patient's for GI evaluation outpatient for age-appropriate screening. Also need to rule out malignancy. (9) Atelectasis Likely secondary to pain we'll add incentive spirometer (10) Metabolic Acidosis add Bicarb (11) DVT prophylaxis Current Visit: Yes Status: Acute Plan to address problem: on lovenox Disposition Plan: in 24-48 hours Plan discusse with patient History Interval history: Follow-up abdominal pain Patient seen and examined this morning in no acute distress, although remains with pleuritic pain of the right upper quadrant area, rates 5/10 intensity Denies any chest pain, nausea, vomiting, diarrhea No fever noted blood pressure controlled No adverse events reported to me by nursing staff Hospitalist Physical - Physical exam Narrative exam: VITAL SIGNS: Reviewed. GENERAL: The patient appeared well nourished and mildly cachectic appearing. Vital signs as documented. HEAD: No signs of head trauma, notable temporal wasting. EYES: Pupils are equal. Extraocular motions intact. EARS: Hearing grossly intact. MOUTH: Oropharynx is normal. NECK: No adenopathy, no JVD. CHEST: Chest with clear breath sounds bilaterally. No wheezes, rales, or rhonchi. CARDIAC: Regular rate and rhythm. S1 and S2, without murmurs, gallops, or rubs. VASCULAR: No Edema. Peripheral pulses normal and equal in all extremities. ABDOMEN: Soft, tender right upper quadrant. 3 well healed surgical scars noted. No sign of distention. No rebound or guarding, and no masses palpated. Bowel Sounds normal. MUSCULOSKELETAL: Good range of motion of all major joints. Extremities without clubbing, cyanosis or edema. NEUROLOGIC EXAM: Alert and oriented x 3. No focal sensory or strength deficits. Speech normal. Follows commands. PSYCHIATRIC: Mood normal. SKIN: No rash or lesions. - Constitutional Vitals: Temp Pulse Resp BP Pulse Ox 98.3 F 105 H 18 121/79 98 10/24/16 07:00 10/24/16 07:00 10/24/16 07:00 10/24/16 07:00 10/24/16 07:00 General appearance: Present: no acute distress, well-nourished Results - Labs CBC & Chem 7: 10/24/16 04:46 10/24/16 04:46 Labs: Laboratory Last Values WBC 19.9 K/mm3 (4.5-11.0) H 10/24/16 04:46 RBC 3.37 M/mm3 (3.65-5.03) L 10/24/16 04:46 Hgb 9.9 gm/dl (11.8-15.2) L 10/24/16 04:46 Hct 30.7 % (35.5-45.6) L 10/24/16 04:46 MCV 91 fl (84-94) 10/24/16 04:46 MCH 29 pg (28-32) 10/24/16 04:46 MCHC 32 % (32-34) 10/24/16 04:46 RDW 16.2 % (13.2-15.2) H 10/24/16 04:46 Plt Count 535 K/mm3 (140-440) H 10/24/16 04:46 Lymph % (Auto) [facility] Care Therapist 10/22/16 11:40 [place] % (Auto) [facility] Therapist 10/22/16 11:40 Eos % (Auto) [facility] Therapist 10/22/16 11:40 Baso % (Auto) [facility] Therapist 10/22/16 11:40 Lymph # [facility] Therapist 10/22/16 11:40 [place] # [facility] Therapist 10/22/16 11:40 Eos # [facility] Therapist 10/22/16 11:40 Baso # [facility] Care Therapist 10/22/16 11:40 Add Manual Diff Complete 10/24/16 04:46 Total Counted 100 10/24/16 04:46 Seg Neutrophils % [facility] Therapist 10/22/16 11:40 Seg Neuts % (Manual) 72.0 % (40.0-70.0) H 10/24/16 04:46 Band Neutrophils % 12.0 % 10/24/16 04:46 Lymphocytes % (Manual) 12.0 % (13.4-35.0) L 10/24/16 04:46 Reactive Lymphs % (Man) 0 % 10/24/16 04:46 Monocytes % (Manual) 4.0 % (0.0-7.3) 10/24/16 04:46 Eosinophils % (Manual) 0 % (0.0-4.3) 10/24/16 04:46 Basophils % (Manual) 0 % (0.0-1.8) 10/24/16 04:46 Metamyelocytes % 0 % 10/24/16 04:46 Myelocytes % 0 % 10/24/16 04:46 Promyelocytes % 0 % 10/24/16 04:46 Blast Cells % 0 % 10/24/16 04:46 Nucleated RBC % Not Reportable 10/24/16 04:46 Seg Neutrophils # [facility] Therapist 10/22/16 11:40 Seg Neutrophils # Man 14.3 K/mm3 (1.8-7.7) H 10/24/16 04:46 Band Neutrophils # 2.4 K/mm3 10/24/16 04:46 Lymphocytes # (Manual) 2.4 K/mm3 (1.2-5.4) 10/24/16 04:46 Abs React Lymphs (Man) 0.0 K/mm3 10/24/16 04:46 Monocytes # (Manual) 0.8 K/mm3 (0.0-0.8) 10/24/16 04:46 Eosinophils # (Manual) 0.0 K/mm3 (0.0-0.4) 10/24/16 04:46 Basophils # (Manual) 0.0 K/mm3 (0.0-0.1) 10/24/16 04:46 Metamyelocytes # 0.0 K/mm3 10/24/16 04:46 Myelocytes # 0.0 K/mm3 10/24/16 04:46 Promyelocytes # 0.0 K/mm3 10/24/16 04:46 Blast Cells # 0.0 K/mm3 10/24/16 04:46 WBC Morphology Not Reportable 10/24/16 04:46 Hypersegmented Neuts Not Reportable 10/24/16 04:46 Hyposegmented Neuts Not Reportable 10/24/16 04:46 Hypogranular Neuts Not Reportable 10/24/16 04:46 Smudge Cells Not Reportable 10/24/16 04:46 Toxic Granulation Not Reportable 10/24/16 04:46 Toxic Vacuolation Not Reportable 10/24/16 04:46 Dohle Bodies Not Reportable 10/24/16 04:46 Pelger-Huet Anomaly Not Reportable 10/24/16 04:46 Don Rods Not Reportable 10/24/16 04:46 Platelet Estimate Appears increased 10/24/16 04:46 Clumped Platelets Few 10/24/16 04:46 Plt Clumps, EDTA Not Reportable 10/24/16 04:46 Large Platelets Not Reportable 10/24/16 04:46 Giant Platelets Not Reportable 10/24/16 04:46 Platelet Satelliting Not Reportable 10/24/16 04:46 Plt Morphology Comment Not Reportable 10/24/16 04:46 RBC Morphology Not Reportable 10/24/16 04:46 Dimorphic RBCs Not Reportable 10/24/16 04:46 Polychromasia Not Reportable 10/24/16 04:46 Hypochromasia Not Reportable 10/24/16 04:46 Poikilocytosis Not Reportable 10/24/16 04:46 Anisocytosis 1+ 10/24/16 04:46 Microcytosis Not Reportable 10/24/16 04:46 Macrocytosis Not Reportable 10/24/16 04:46 Spherocytes Not Reportable 10/24/16 04:46 Pappenheimer Bodies Not Reportable 10/24/16 04:46 Sickle Cells Not Reportable 10/24/16 04:46 Target Cells Not Reportable 10/24/16 04:46 Tear Drop Cells Not Reportable 10/24/16 04:46 Ovalocytes Not Reportable 10/24/16 04:46 Helmet Cells Not Reportable 10/24/16 04:46 [place] Bodies Not Reportable 10/24/16 04:46 [place] Rings Not Reportable 10/24/16 04:46 Theo Cells Not Reportable 10/24/16 04:46 Bite Cells Not Reportable 10/24/16 04:46 Crenated Cell Not Reportable 10/24/16 04:46 Elliptocytes Few 10/24/16 04:46 Acanthocytes (Spur) Not Reportable 10/24/16 04:46 Rouleaux Not Reportable 10/24/16 04:46 Hemoglobin C Crystals Not Reportable 10/24/16 04:46 Schistocytes Not Reportable 10/24/16 04:46 Malaria parasites Not Reportable 10/24/16 04:46 Abraham Bodies Not Reportable 10/24/16 04:46 Hem Pathologist Commnt No 10/24/16 04:46 PT 14.0 Sec. (12.2-14.9) 10/22/16 11:40 INR 1.09 (0.87-1.13) 10/22/16 11:40 APTT 34.9 Sec. (24.2-36.6) 10/22/16 11:40 D-Dimer 4069.48 ng/mlDDU (0-234) H 10/22/16 11:40 Sodium 139 mmol/L (137-145) 10/24/16 04:46 Potassium 4.2 mmol/L (3.6-5.0) 10/24/16 04:46 Chloride 104.4 mmol/L (98-107) 10/24/16 04:46 Carbon Dioxide 18 mmol/L (22-30) L 10/24/16 04:46 Anion Gap 21 mmol/L 10/24/16 04:46 BUN 11 mg/dL (9-20) 10/24/16 04:46 Creatinine 1.5 mg/dL (0.8-1.5) 10/24/16 04:46 Estimated GFR 58 ml/min 10/24/16 04:46 BUN/Creatinine Ratio 7.33 % 10/24/16 04:46 Glucose 121 mg/dL (75-100) H 10/24/16 04:46 Hemoglobin A1c 5.4 % (4-6) 10/22/16 11:40 Lactic Acid 1.5 mmol/L (0.7-2.0) 10/22/16 11:40 Calcium 7.9 mg/dL (8.4-10.2) L 10/24/16 04:46 Magnesium 1.1 mg/dL (1.7-2.3) L 10/22/16 11:40 Total Bilirubin 0.8 mg/dL (0.1-1.2) 10/24/16 04:46 Direct Bilirubin 0.2 mg/dL (0-0.2) 10/22/16 11:40 Indirect Bilirubin 0.5 mg/dL 10/22/16 11:40 AST 19 units/L (5-40) 10/24/16 04:46 ALT 17 units/L (7-56) 10/24/16 04:46 Alkaline Phosphatase 87 units/L (35-129) 10/24/16 04:46 Ammonia 40.0 umol/L (25-60) 10/22/16 11:40 Troponin T < 0.010 ng/mL (0.00-0.029) 10/22/16 11:40 NT-Pro-B Natriuret Pep 4295 pg/mL (0-900) H 10/22/16 11:40 Total Protein 6.3 g/dL (6.3-8.2) 10/24/16 04:46 Albumin 2.8 g/dL (3.9-5) L 10/24/16 04:46 Albumin/Globulin Ratio 0.8 % 10/24/16 04:46 Urine Color Yellow (Yellow) 10/22/16 11:50 Urine Turbidity Clear (Clear) 10/22/16 11:50 Urine pH 5.0 (5.0-7.0) 10/22/16 11:50 Ur Specific [place] 1.018 (1.003-1.030) 10/22/16 11:50 Urine Protein <15 mg/dl mg/dL (Negative) 10/22/16 11:50 Urine Glucose (UA) Neg mg/dL (Negative) 10/22/16 11:50 Urine Ketones Neg mg/dL (Negative) 10/22/16 11:50 Urine Blood Neg (Negative) 10/22/16 11:50 Urine Nitrite Neg (Negative) 10/22/16 11:50 Urine Bilirubin Neg (Negative) 10/22/16 11:50 Urine Urobilinogen 2.0 mg/dL (<2.0) 10/22/16 11:50 Ur Leukocyte Esterase Neg (Negative) 10/22/16 11:50 Urine WBC (Auto) 2.0 /HPF (0.0-6.0) 10/22/16 11:50 Urine RBC (Auto) 2.0 /HPF (0.0-6.0) 10/22/16 11:50 U Epithel Cells (Auto) < 1.0 /HPF (0-13.0) 10/22/16 11:50 Urine Mucus Few /HPF 10/22/16 11:50 - Imaging and Cardiology Chest x-ray: image reviewed (no acute pathology noted on my personal review)
[2016-10-24] MEDS: LEVAQUIN 750MG/150ML 150 ML IV SCH (12:00)
[2016-10-24] MEDS: FLAGYL PO SCH ×2 (14:15→22:00)
--- NOTE | 2016-10-24 14:23 | Consultation ---
HISTORY OF PRESENT ILLNESS: The patient was admitted to this hospital about 4 days ago because of gallbladder disease that showed non-opacification of the gallbladder with a HIDA scan. At that point, he underwent laparoscopic cholecystectomy. Postop, he did well. He is a known case of heart problem. He was in the LT[facility] in the past about 2-3 weeks from what I could tell, all this was from cardiac problems that he has. At this time, he came because of some chest pain on the right side, especially when he takes a deep breath. A CAT scan of the abdomen was essentially unrevealing. His hemoglobin was 9.8, hematocrit was 29.8, white count was 12.9. The potassium was pending. Creatinine is 1.5. The INR was 1.49. PHYSICAL EXAMINATION: GENERAL: Showed a thin, slim black male who is in no distress. He told me that the pain is gone now and he is eager to go home. ABDOMEN: Soft and benign. CHEST: Essentially clear. HEART: Sounds are normal. EXTREMITIES: Without any edema. Surgically speaking, I do not see anything abnormal on him, he may go home ____ straightforward normal postop course after cholecystectomy with a scope. He indicates to me that he was advised that he may go home later this afternoon. I have no problem with that. I did indicate to him that I would like to see him in the office in about 10 days. JOB# [id number] FOREIGN/ANN-MARIE
[2016-10-24] MEDS: MORPHINE IV PRN (14:30)
[2016-10-24] MEDS: SODIUM BICARBONATE PO SCH (22:00)
[2016-10-25] MEDS: KEPPRA PO SCH ×3 (03:23→22:00)
[2016-10-25] MEDS: NORCO 7.5/325 PO PRN ×2 (03:25→23:15)
[2016-10-25 05:46] LABS: Hematocrit 27.9 % (35.5-45.6); Hemoglobin 9.6 gm/dl (11.8-15.2); Mean Corpuscular HGB Conc 34 % (32-34); Mean Corpuscular Hemoglobin 31 pg (28-32); Mean Corpuscular Volume 90 fl (84-94); Platelet Count 531 K/mm3 (140-440); Red Cell Distribution Width 15.9 % (13.2-15.2); White Blood Count 16.7 K/mm3 (4.5-11.0)
[2016-10-25] MEDS: LASIX IV SCH (06:00)
[2016-10-25] MEDS: FLAGYL PO SCH ×3 (06:00→22:00)
[2016-10-25 06:06] LABS: BUN/Creatinine Ratio 9.41; Calcium 7.8 mg/dL (8.4-10.2); Chloride 100.3 mmol/L (98-107); Potassium 4.3 mmol/L (3.6-5.0)
[2016-10-25] MEDS: DUONEB 0.5 MG-3 MG/3 ML SOLN IH SCH ×6 (07:42→20:46)
[2016-10-25] MEDS: K-DUR PO SCH ×2 (07:43→22:00)
[2016-10-25] MEDS ORDERED: NACL 0.9% 500 ML 500 ML IV SCH (08:00)
[2016-10-25] MEDS: LEVAQUIN 750MG/150ML 150 ML IV SCH (10:31)
--- NOTE | 2016-10-25 10:50 | Query-Infection ---
Dear Date:10/25/16 Tie Up Worker/CDS:Stephon London Phone#: Exercise your independent professional judgment when responding to this query. Questions asked do not imply a particular answer is desired or expected. We greatly appreciate your clarification on this issue. Clinical Documentation States: 61 y/o m admitted 10/22/16 for SOB diagnosed as CHF exacerbation. 2 days prior to admission patient underwent lap gerardo. according to Dr. Gilliam's progressive note, "Rule out sepsis". Clinical findings show: (please check applicable parameters) Infection, known /suspected, with some of the following indicators; Specify the infection:Unkown 3 General parameters [x] Fever (core temp >38.30C or 100.40F) [ ] Hypothermia (core temp <36C) [x] Heart rate >90 bpm [x] Tachypnea: >20 bpm or pCO2 < 32 mmHg [ ] Altered mental status [ ] Significant edema / +ve fluid balance (>20 ml/kg 24 h) [ ] Hyperglycemia (Bl. glucose >110 mg/dl) w/o diabetes Inflammatory parameters [x] Leukocytosis (white blood cell count >12,000/l) [ ] Leukopenia (white blood cell count <4,000/l) [ ] Bandemia (immature WBC > 10%) [x] Leucocyte Left Shift [ ] Plasma procalcitonin>2 SD above the normal value Hemodynamic and tissue perfusion parameters [ ] Arterial hypotension(SBP <90 mmHg, MAP <70 mmHg,or a SBP drop >40 mmHg in adults) [ ] Hyperlactatemia (>3 mmol/l) [ ] Anion Gap (> 11mEG/l) [ ] Decreased capillary refill or mottling Organ dysfunction parameters [ ] Arterial hypoxemia (PaO2/FIO2 <300) [ ] Creatinine increase =0.5 mg/dl [ ] Acute oliguria (urine output <0.5 ml | kg |h or 45 mM/l for at least 2 hrs) [ ] Coagulation abnormalities (INR >1.5 or activated partial thromboplastin time >60 s) [ ] Ileus (absent grazyna wel sounds) [ ] Thrombocytopenia (platelet count <100,000/l) [ ] Hyperbilirubinemia (plasma total bilirubin >4 mg/dl) According to the clinical indications above, can Bacteremia be further specified? If so, please indicate below and in your Progress Notes and/ or Discharge Summary. Indicate if the condition was present on admission. PHYSICIAN RESPONSE: [ x] Sepsis [ ] Severe Sepsis [ ] Septic Shock [ ] Septicemia [ ] Sepsis now resolved [ ] SIRS due to non-infectious cause with organ dysfunction [ ] SIRS due to non-infectious cause without organ dysfunction [ ] Other: [ ] Comment/Explanation: Present on Admission: [y] Yes (Y) [ ] Clinically undeterminable (W) [ ] No ( N) [ ] Ruled Out Please also document response in your Progress Notes and/or Discharge Summary and indicate if the condition was present on admission Notes: SIRS/ SIRS WITH ORGAN DYSFUNCTION Systemic inflammatory response syndrome (SIRS) generally refers to the systemic response to trauma/desouza or other insult such as Acute Myocardial Infarction, Acute Pancreatitis, and Major Surgery with symptoms including fever, tachycardia , tachypnea, and leukocytosis (1). BACTEREMIA Presence of viable bacteria in the circulating blood (2). This term is reserved for patients that do not manifest above SIRS response. SEPTICEMIA Generally refers to a systemic disease associated with the presence of pathological microorganisms or toxins in the blood, which can include bacteria, viruses, fungi or other organisms (1). SEPSIS Generally refers to SIRS due infection (1). SEVERE SEPSIS Generally refers to sepsis associated with acute organ dysfunction (1). SEPTIC SHOCK Generally refers to circulatory failure associated with severe sepsis (2), and defined as hypotension or hypoperfusion despite adequate fluid resuscitation (1 hour) (3). REFERENCES: 1. [place] [employer]/Society of Critical Care Medicine Consensus Conference. Definitions for sepsis and organ failure and guidelines for the use of innovative therapies in sepsis. Critical Care Med 1992;20:864 - 74. 2. Asael dickinson MM, Joey MP, Tylor DEL RIO, Joe E, Pedro D, Rah D, Carlos J, Jayla SM , Brian JL, Andrés G; International Sepsis Definitions Conference. 2001 SCCM/ESICM/ACCP/ATS/SIS International Sepsis Definitions Conference. Intensive Care Med. 2002 Apr;29(4):530-8. Epub 2002Jan 04. Review. PubMed PMID:[id number] 3. ICD-9-CM Official Guidelines for Coding and Reporting 4. Medscape Drugs, Diseases and Procedures references 5. [employer] Textbook of Internal Medicine. 18th Edition MTDD
[2016-10-25] MEDS: PLAVIX PO SCH (12:05)
[2016-10-25] MEDS: PEPCID PO SCH ×2 (12:05→22:00)
[2016-10-25] MEDS: PROTONIX PO SCH (12:05)
[2016-10-25] MEDS: SODIUM BICARBONATE PO SCH ×2 (12:05→22:00)
[2016-10-25] MEDS: NORVASC PO SCH (12:45)
[2016-10-25] MEDS: TOPROL XL PO SCH (12:45)
--- NOTE | 2016-10-25 14:08 | Consultation ---
History of Present Illness Consult date: 10/25/16 Consult reason: congestive heart failure History of present illness: This is a 61yr old male with recent gallbladder surgery who returns with complaints of right upper quadrant abdominal pain. Patient reports abdominal pain is worse with deep inspirations. He has no nausea vomiting. An EKG shows a normal sinus rhythm with nonspecific T-wave abnormalities. He denies chest pain. A CT chest report mild cardiomegaly with small bilateral effusion. Cardiology consultation requested for CHF evaluation. Medications and Allergies Allergies Allergy/AdvReac Type Severity Reaction Status Date / Time hydromorphone HCl Allergy Hives Verified 10/16/16 12:36 [From Dilaudid] Home Medications Medication Instructions Recorded Confirmed Last Taken Type Clopidogrel Bisulfate [Plavix] 75 mg PO QDAY 10/16/16 10/22/16 Unknown History Lisinopril/Hydrochlorothiazide 1 tab PO QDAY 10/16/16 10/22/16 Unknown History [Zestoretic 20-25 mg] Metoprolol Xl [Metoprolol 50 mg PO QDAY 10/16/16 10/22/16 Unknown History SUCCINATE ER TAB] Nitroglycerin [Nitrostat] 0.4 mg SL Q5M PRN 10/16/16 10/22/16 Unknown History Omeprazole 20 mg PO QDAY 10/16/16 10/22/16 Unknown History amLODIPine [Norvasc] 10 mg PO DAILY 10/16/16 10/22/16 Unknown History levETIRAcetam [Keppra TAB] 750 mg PO BID 10/16/16 10/22/16 Unknown History HYDROcodone/APAP 7.5-325 [Paicines 1 each PO Q6HR PRN #30 tablet 10/21/16 10/22/16 Unknown Rx 7.5-325 mg TAB] Active Meds: Active Medications Acetaminophen (Tylenol) 650 mg PO Q4H PRN PRN Reason: Pain MILD(1-3)/Fever >100.5/MULTANI Acetaminophen/Hydrocodone Bitart (Paicines 7.5/325) 1 each PO Q6HR PRN PRN Reason: Pain Last Admin: 10/25/16 03:25 Dose: 1 each Albuterol (Proventil) 2.5 mg IH Q3HRT PRN PRN Reason: Shortness Of Breath Albuterol/Ipratropium (Duoneb 0.5 Mg-3 Mg/3 Ml Soln) 1 ampul IH Q6HRT [facility] Last Admin: 10/25/16 13:21 Dose: 1 ampul Amlodipine Besylate (Norvasc) 10 mg PO DAILY [facility] Last Admin: 10/24/16 10:00 Dose: 10 mg Bisacodyl (Dulcolax) 10 mg MI QDAY PRN PRN Reason: Constipation unrelieved by MOM Clopidogrel Bisulfate (Plavix) 75 mg PO QDAY [facility] Last Admin: 10/24/16 10:00 Dose: 75 mg Famotidine (Pepcid) 20 mg PO BID [facility] Last Admin: 10/24/16 22:00 Dose: 20 mg Hydromorphone HCl (Dilaudid) 0.5 mg IV Q3H PRN PRN Reason: Pain , Severe (7-10) Last Admin: 10/23/16 23:32 Dose: 0.5 mg Levofloxacin/Dextrose (Levaquin 750mg/150ml) 150 mls @ 100 mls/hr IV Q24HR [facility] PRN Reason: Protocol Last Admin: 10/25/16 10:31 Dose: 100 mls/hr Levetiracetam (Keppra) 750 mg PO BID [facility] Last Admin: 10/25/16 03:23 Dose: 750 mg Magnesium Hydroxide (Milk Of Magnesia) 30 ml PO Q4H PRN PRN Reason: Constipation Metoprolol Succinate (Toprol Xl) 50 mg PO QDAY [facility] Last Admin: 10/24/16 10:00 Dose: 50 mg Metronidazole (Flagyl) 500 mg PO Q8HR [facility] Last Admin: 10/25/16 06:00 Dose: 500 mg Morphine Sulfate (Morphine) 2 mg IV Q4H PRN PRN Reason: Pain, Moderate (4-6) Last Admin: 10/24/16 14:30 Dose: 2 mg Ondansetron HCl (Zofran) 4 mg IV Q8H PRN PRN Reason: N/V unrelieved by Reglan Oxycodone/Acetaminophen (Percocet 5/325) 1 tab PO Q6H PRN PRN Reason: Pain, Moderate (4-6) Last Admin: 10/24/16 08:30 Dose: 1 tab Pantoprazole Sodium (Protonix) 20 mg PO QDAY [facility] Last Admin: 10/24/16 10:00 Dose: 20 mg Potassium Chloride (K-Dur) 20 meq PO Q12H [facility] Last Admin: 10/25/16 07:43 Dose: 20 meq Sodium Bicarbonate (Sodium Bicarbonate) 650 mg PO BID MERARY Stop: 10/27/16 10:01 Last Admin: 10/24/16 22:00 Dose: 650 mg Zolpidem Tartrate (Ambien) 5 mg PO QHS PRN PRN Reason: Insomnia Physical Examination Vital Signs Temp Pulse Resp BP Pulse Ox 97.8 F 125 H 24 121/78 94 10/22/16 10:36 10/22/16 10:36 10/22/16 10:36 10/22/16 10:36 10/22/16 10:36 General appearance: mild distress HEENT: Positive: PERRL Neck: Positive: trachea midline Cardiac: Positive: Reg Rate and Rhythm Lungs: Positive: Decreased Breath Sounds Neuro: Positive: Grossly Intact Results 10/25/16 05:08 10/25/16 05:08 CBC 10/25/16 Range/Units 05:08 WBC 16.7 H (4.5-11.0) K/mm3 RBC 3.10 L (3.65-5.03) M/mm3 Hgb 9.6 L (11.8-15.2) gm/dl Hct 27.9 L (35.5-45.6) % Plt Count 531 H (140-440) K/mm3 Comprehensive Metabolic Panel 10/25/16 Range/Units 05:08 Sodium 139 (137-145) mmol/L Potassium 4.3 (3.6-5.0) mmol/L Chloride 100.3 (98-107) mmol/L Carbon Dioxide 20 L (22-30) mmol/L BUN 16 (9-20) mg/dL Creatinine 1.7 H (0.8-1.5) mg/dL Glucose 117 H (75-100) mg/dL Calcium 7.8 L (8.4-10.2) mg/dL EKG interpretations - EKG Sinus rhythms and dysrhythmias: sinus rhythm Assessment and Plan postoperative right sided pain s/p recent gallbladder surgery Hx of CAD normal MPI 6 months ago in [place] per patient report Hypertension Hx of Seizure disorder Will get an echocardiogram for LVEF assessment. Continue medical therapy for CAD.
--- NOTE | 2016-10-25 14:21 | Progress Note ---
Assessment and Plan Assessment and plan: Assessment Sepsis 61-year-old male with history of seizure disorder, status post cholecystectomy recently, now with recurrent abdominal pain right upper quadrant LFTs are within normal limits the patient is tender with low-grade fever currently being treated for possible underlying and sepsis etiology of unknown course. (1) Abdominal pain upper quadrant with leukocytosis R/O Sepsis centrifugal machine tender. Reviewed CT again no evidence of leak LFTs are within normal limits. Surgery input appreciated. Continue antibiotics. Continue pain control. Obtain physical therapy evaluate and treat encourage patient to start taking by mouth. (2) Acute kidney injury- Likely secondary to Vasomotor Nephropathy Hold lasix give gentle hydration and recheck in am (3) Acute exacerbation of CHF (congestive heart failure) possible diastolic Await ECHO Will hold Lasix at this point patient received 40 of Lasix twice a day creatinine now increased. Kcl 20 meq po q12h Cardiology consult pending (3) Status post cholecystectomy Current Visit: Yes Status: Acute Plan to address problem: No post op complication Pain on the right upper quadrant could just be post surgical pain. We'll add morphine when necessary for now, we'll also add incentive spirometer (4) Seizure disorder Current Visit: Yes Status: Chronic Plan to address problem: on keppra (5) HTN (hypertension) Current Visit: Yes Status: Chronic Qualifiers: Hypertension type: essential hypertension Qualified Code(s): I10 - Essential (primary) hypertension Plan to address problem: cont antihypertensives amlodipine and lisinopril /hctz 20/25 po qd (6) CAD (coronary artery disease) Current Visit: Yes Status: Chronic Qualifiers: Coronary Disease-Associated Artery/Lesion type: [place] artery Plan to address problem: on plavix (7) GERD (gastroesophageal reflux disease) Current Visit: Yes Status: Chronic Qualifiers: Esophagitis presence: without esophagitis Qualified Code(s): K21.9 - Gastro -esophageal reflux disease without esophagitis Plan to address problem: on ppi's (8) leukocytosis rule out sepsis -Etiology remains unknown. Patient reports no diarrhea. Will broaden antibiotic coverage considering recent abdominal procedure. -Add Flagyl -Continue to monitor no further fever noted in the past 24 hours. -Sinus tachycardia could be secondary to pain (9) moderate protein calorie malnutrition Obtain nutrition consultation. Recommend not have discussed with the patient's for GI evaluation outpatient for age-appropriate screening. Also need to rule out malignancy. (10) Atelectasis Likely secondary to pain we'll add incentive spirometer (11) Metabolic Acidosis add Bicarb (12) DVT prophylaxis Current Visit: Yes Status: Acute Plan to address problem: on lovenox Discussed extensively with the patient and family. Recommend recheck of WBC if continues to improve and no further fever. can discharge to follow with Surgery outpatient. If worsening pain and not tolerating diet will repeat CT with contrast of the abdomen. History Interval history: Follow-up abdominal pain Patient seen and examined this morning in no acute distress, although remains with pleuritic pain of the right upper quadrant area, rates 4/10 intensity Denies any chest pain, by reports nausea with no vomiting refusing to eat at this time although drinking some energy boost. No fever noted blood pressure controlled No adverse events reported to me by nursing staff Hospitalist Physical - Physical exam Narrative exam: VITAL SIGNS: Reviewed. GENERAL: The patient appeared well nourished and mildly cachectic appearing. Vital signs as documented. HEAD: No signs of head trauma, notable temporal wasting. EYES: Pupils are equal. Extraocular motions intact. EARS: Hearing grossly intact. MOUTH: Oropharynx is normal. NECK: No adenopathy, no JVD. CHEST: Chest with clear breath sounds bilaterally. No wheezes, rales, or rhonchi. CARDIAC: Regular rate and rhythm. S1 and S2, without murmurs, gallops, or rubs. VASCULAR: No Edema. Peripheral pulses normal and equal in all extremities. ABDOMEN: Soft, tender right upper quadrant. 3 well healed surgical scars noted. No sign of distention. No rebound or guarding, and no masses palpated. Bowel Sounds normal. MUSCULOSKELETAL: Good range of motion of all major joints. Extremities without clubbing, cyanosis or edema. NEUROLOGIC EXAM: Lethargic and oriented x 3. No focal sensory or strength deficits. Speech normal. Follows commands. PSYCHIATRIC: Mood normal. SKIN: No rash or lesions. - Constitutional Vitals: Temp Pulse Resp BP Pulse Ox 98.9 F 89 17 111/69 95 10/25/16 08:00 10/25/16 13:23 10/25/16 13:23 10/25/16 08:00 10/25/16 09:46 General appearance: Present: no acute distress, well-nourished Results - Labs CBC & Chem 7: 10/25/16 05:08 01/16/17 05:08 Labs: Laboratory Last Values WBC 16.7 K/mm3 (4.5-11.0) H 10/25/16 05:08 RBC 3.10 M/mm3 (3.65-5.03) L 10/25/16 05:08 Hgb 9.6 gm/dl (11.8-15.2) L 10/25/16 05:08 Hct 27.9 % (35.5-45.6) L 10/25/16 05:08 MCV 90 fl (84-94) 10/25/16 05:08 MCH 31 pg (28-32) 10/25/16 05:08 MCHC 34 % (32-34) 10/25/16 05:08 RDW 15.9 % (13.2-15.2) H 10/25/16 05:08 Plt Count 531 K/mm3 (140-440) H 10/25/16 05:08 Lymph % (Auto) Frame Runner 10/22/16 11:40 Morgan % (Auto) Frame Runner 10/22/16 11:40 Eos % (Auto) Frame Runner 10/22/16 11:40 Baso % (Auto) Frame Runner 10/22/16 11:40 Lymph # Frame Runner 10/22/16 11:40 Morgan # Frame Runner 10/22/16 11:40 Eos # Frame Runner 10/22/16 11:40 Baso # Frame Runner 10/22/16 11:40 Add Manual Diff Complete 10/24/16 04:46 Total Counted 100 10/24/16 04:46 Seg Neutrophils % Frame Runner 10/22/16 11:40 Seg Neuts % (Manual) 72.0 % (40.0-70.0) H 10/24/16 04:46 Band Neutrophils % 12.0 % 10/24/16 04:46 Lymphocytes % (Manual) 12.0 % (13.4-35.0) L 10/24/16 04:46 Reactive Lymphs % (Man) 0 % 10/24/16 04:46 Monocytes % (Manual) 4.0 % (0.0-7.3) 10/24/16 04:46 Eosinophils % (Manual) 0 % (0.0-4.3) 10/24/16 04:46 Basophils % (Manual) 0 % (0.0-1.8) 10/24/16 04:46 Metamyelocytes % 0 % 10/24/16 04:46 Myelocytes % 0 % 10/24/16 04:46 Promyelocytes % 0 % 10/24/16 04:46 Blast Cells % 0 % 10/24/16 04:46 Nucleated RBC % Not Reportable 10/24/16 04:46 Seg Neutrophils # Frame Runner 10/22/16 11:40 Seg Neutrophils # Man 14.3 K/mm3 (1.8-7.7) H 10/24/16 04:46 Band Neutrophils # 2.4 K/mm3 10/24/16 04:46 Lymphocytes # (Manual) 2.4 K/mm3 (1.2-5.4) 10/24/16 04:46 Abs React Lymphs (Man) 0.0 K/mm3 10/24/16 04:46 Monocytes # (Manual) 0.8 K/mm3 (0.0-0.8) 10/24/16 04:46 Eosinophils # (Manual) 0.0 K/mm3 (0.0-0.4) 10/24/16 04:46 Basophils # (Manual) 0.0 K/mm3 (0.0-0.1) 10/24/16 04:46 Metamyelocytes # 0.0 K/mm3 10/24/16 04:46 Myelocytes # 0.0 K/mm3 10/24/16 04:46 Promyelocytes # 0.0 K/mm3 10/24/16 04:46 Blast Cells # 0.0 K/mm3 10/24/16 04:46 WBC Morphology Not Reportable 10/24/16 04:46 Hypersegmented Neuts Not Reportable 10/24/16 04:46 Hyposegmented Neuts Not Reportable 10/24/16 04:46 Hypogranular Neuts Not Reportable 10/24/16 04:46 Smudge Cells Not Reportable 10/24/16 04:46 Toxic Granulation Not Reportable 10/24/16 04:46 Toxic Vacuolation Not Reportable 10/24/16 04:46 Dohle Bodies Not Reportable 10/24/16 04:46 Pelger-Huet Anomaly Not Reportable 10/24/16 04:46 Don Rods Not Reportable 10/24/16 04:46 Platelet Estimate Appears increased 10/24/16 04:46 Clumped Platelets Few 10/24/16 04:46 Plt Clumps, EDTA Not Reportable 10/24/16 04:46 Large Platelets Not Reportable 10/24/16 04:46 Giant Platelets Not Reportable 10/24/16 04:46 Platelet Satelliting Not Reportable 10/24/16 04:46 Plt Morphology Comment Not Reportable 10/24/16 04:46 RBC Morphology Not Reportable 10/24/16 04:46 Dimorphic RBCs Not Reportable 10/24/16 04:46 Polychromasia Not Reportable 10/24/16 04:46 Hypochromasia Not Reportable 10/24/16 04:46 Poikilocytosis Not Reportable 10/24/16 04:46 Anisocytosis 1+ 10/24/16 04:46 Microcytosis Not Reportable 10/24/16 04:46 Macrocytosis Not Reportable 10/24/16 04:46 Spherocytes Not Reportable 10/24/16 04:46 Pappenheimer Bodies Not Reportable 10/24/16 04:46 Sickle Cells Not Reportable 10/24/16 04:46 Target Cells Not Reportable 10/24/16 04:46 Tear Drop Cells Not Reportable 10/24/16 04:46 Ovalocytes Not Reportable 10/24/16 04:46 Helmet Cells Not Reportable 10/24/16 04:46 [place] Bodies Not Reportable 10/24/16 04:46 [place] Rings Not Reportable 10/24/16 04:46 [place] Cells Not Reportable 10/24/16 04:46 Bite Cells Not Reportable 10/24/16 04:46 Crenated Cell Not Reportable 10/24/16 04:46 Elliptocytes Few 10/24/16 04:46 Acanthocytes (Spur) Not Reportable 10/24/16 04:46 Rouleaux Not Reportable 10/24/16 04:46 Hemoglobin C Crystals Not Reportable 10/24/16 04:46 Schistocytes Not Reportable 10/24/16 04:46 Malaria parasites Not Reportable 10/24/16 04:46 Abraham Bodies Not Reportable 10/24/16 04:46 Hem Pathologist Commnt No 10/24/16 04:46 PT 14.0 Sec. (12.2-14.9) 10/22/16 11:40 INR 1.09 (0.87-1.13) 10/22/16 11:40 APTT 34.9 Sec. (24.2-36.6) 10/22/16 11:40 D-Dimer 4069.48 ng/mlDDU (0-234) H 10/22/16 11:40 Sodium 139 mmol/L (137-145) 10/25/16 05:08 Potassium 4.3 mmol/L (3.6-5.0) 10/25/16 05:08 Chloride 100.3 mmol/L (98-107) 10/25/16 05:08 Carbon Dioxide 20 mmol/L (22-30) L 10/25/16 05:08 Anion Gap 23 mmol/L 10/25/16 05:08 BUN 16 mg/dL (9-20) 10/25/16 05:08 Creatinine 1.7 mg/dL (0.8-1.5) H 10/25/16 05:08 Estimated GFR 50 ml/min 10/25/16 05:08 BUN/Creatinine Ratio 9.41 % 10/25/16 05:08 Glucose 117 mg/dL (75-100) H 10/25/16 05:08 Hemoglobin A1c 5.4 % (4-6) 10/22/16 11:40 Lactic Acid 1.5 mmol/L (0.7-2.0) 10/22/16 11:40 Calcium 7.8 mg/dL (8.4-10.2) L 10/25/16 05:08 Magnesium 1.1 mg/dL (1.7-2.3) L 10/22/16 11:40 Total Bilirubin 0.8 mg/dL (0.1-1.2) 10/24/16 04:46 Direct Bilirubin 0.2 mg/dL (0-0.2) 10/22/16 11:40 Indirect Bilirubin 0.5 mg/dL 10/22/16 11:40 AST 19 units/L (5-40) 10/24/16 04:46 ALT 17 units/L (7-56) 10/24/16 04:46 Alkaline Phosphatase 87 units/L (35-129) 10/24/16 04:46 Ammonia 40.0 umol/L (25-60) 10/22/16 11:40 Troponin T < 0.010 ng/mL (0.00-0.029) 10/22/16 11:40 NT-Pro-B Natriuret Pep 4295 pg/mL (0-900) H 10/22/16 11:40 Total Protein 6.3 g/dL (6.3-8.2) 10/24/16 04:46 Albumin 2.8 g/dL (3.9-5) L 10/24/16 04:46 Albumin/Globulin Ratio 0.8 % 10/24/16 04:46 Urine Color Yellow (Yellow) 10/22/16 11:50 Urine Turbidity Clear (Clear) 10/22/16 11:50 Urine pH 5.0 (5.0-7.0) 10/22/16 11:50 Ur Specific [place] 1.018 (1.003-1.030) 10/22/16 11:50 Urine Protein <15 mg/dl mg/dL (Negative) 10/22/16 11:50 Urine Glucose (UA) Neg mg/dL (Negative) 10/22/16 11:50 Urine Ketones Neg mg/dL (Negative) 10/22/16 11:50 Urine Blood Neg (Negative) 10/22/16 11:50 Urine Nitrite Neg (Negative) 10/22/16 11:50 Urine Bilirubin Neg (Negative) 10/22/16 11:50 Urine Urobilinogen 2.0 mg/dL (<2.0) 10/22/16 11:50 Ur Leukocyte Esterase Neg (Negative) 10/22/16 11:50 Urine WBC (Auto) 2.0 /HPF (0.0-6.0) 10/22/16 11:50 Urine RBC (Auto) 2.0 /HPF (0.0-6.0) 10/22/16 11:50 U Epithel Cells (Auto) < 1.0 /HPF (0-13.0) 10/22/16 11:50 Urine Mucus Few /HPF 10/22/16 11:50 Microbiology 10/22/16 11:40 Peripheral/Venous Blood Culture - Preliminary NO GROWTH AFTER 72 HOURS 10/22/16 12:00 Peripheral/Venous Blood Culture - Preliminary NO GROWTH AFTER 72 HOURS 10/22/16 Unknown Urine,Clean Catch Urine Culture - Final NO GROWTH AFTER 48 HOURS
[2016-10-25] MEDS: MORPHINE IV PRN ×2 (15:22→23:00)
[2016-10-25] MEDS: TYLENOL PO PRN (15:31)
--- NOTE | 2016-10-25 18:39 | Echocardiography Report ---
Transthoracic Echocardiogram Indication: CHF BP: 121/79 Conclusions *1. Mild dilatation of the ascending aorta, 4.1cm diameter. *2. LV function lower normal, EF 50%. *3. Mild MR. *4. Mild-moderate TR with moderate pulm HTN. Findings Left Ventricle: The left ventricular chamber size is normal. Mild concentric left ventricular hypertrophy is observed. Global left ventricular wall motion and contractility are within normal limits. Global left ventricular systolic function is at the lower limits of normal. The estimated ejection fraction is 50-55%. Normal left ventricular diastolic filling is observed. Left Atrium: The left atrial chamber size is normal. Right Ventricle: The right ventricular cavity size is normal. The right ventricular global systolic function is normal. Right Atrium: The right atrial cavity size is normal. The interatrial septum appears normal. Aortic Valve: The aortic valve structure is normal. The aortic valve leaflets are mildly thickened. Systolic excursion of the aortic valve is normal. There is trace of aortic regurgitation. There is no evidence of aortic stenosis. Mitral Valve: The mitral valve leaflets appear myxomatous. The mitral valve leaflets are mildly thickened. There is mild mitral regurgitation. There is no evidence of mitral stenosis. Tricuspid Valve: The tricuspid valve leaflets are normal. There is mild to moderate tricuspid regurgitation. The right ventricular systolic pressure is calculated at 47 mmHg. There is evidence of moderate pulmonary hypertension. There is no tricuspid stenosis. Pulmonic Valve: The pulmonic valve appears normal. There is trace pulmonic regurgitation. There is no pulmonic stenosis. Pericardium: There is no pericardial effusion. Aorta: There is mild dilatation of the ascending aorta. There is mild dilatation of the aortic root. Venous: The inferior vena cava appears normal in size. Measurements Chambers MM Name Value Normal Range Ao root diameter (MM) 3.8 cm (2 - 3.7) LA dimension (AP) MM 2.9 cm (1.9 - 4) LA:Ao ratio (MM) 0.76 ratio - AV cusp separation (MM) 1.9 cm (1.5 - 2.6) Chambers 2D Name Value Normal Range IVSd (2D) 1.23 cm (0.6 - 1.1) LVPWd (2D) 1.27 cm (0.6 - 1.1) IVS:LVPW ratio (2D) 0.97 ratio - LVIDd (2D) 4.72 cm (3.7 - 5.6) LVIDs (2D) 3.32 cm (2 - 3.8) LV FS (Teichholz) (2D) 29.7 % - LV FS (cube) (2D) 29.7 % - EF Teichholz (2D) 56.5 % - Ao root diameter (2D) 4.1 cm (2 - 3.7) LA dimension (AP) 2D 3.3 cm (1.9 - 4) LA:Ao ratio (2D) 0.8 ratio - Volumes/Mass Name Value Normal Range LA ESV SP 4CH (MOD) 34 ml - LA ESV SP 2CH (MOD) 45 ml - LA ESV BP (MOD) 42 ml - LA ESV BP (MOD) index 21.9 ml/m2 - LV EDV SP 4CH (MOD) 62 ml - LV ESV SP 4CH (MOD) 24 ml - EF SP 4CH (MOD) 61 % - LV EDV SP 2CH (MOD) 75 ml - LV ESV SP 2CH (MOD) 44 ml - EF SP 2CH (MOD) 41 % - LV EDV BP 68 ml - LV ESV BP 34 ml - BP EF (MOD) 50 % - Diastolic/Systolic Function Name Value Normal Range MV E-wave Vmax 0.88 m/sec - MV deceleration time 137 msec - MV A-wave Vmax 0.63 m/sec - MV E:A ratio 1.4 ratio - LV septal e' Vmax 0.09 m/sec - LV lateral e' Vmax 0.1 m/sec - LV E:e' septal ratio 9.6 ratio - LV E:e' lateral ratio 9 ratio - Aortic Valve Name Value Normal Range AV VTI 19.1 cm - AV mean gradient 3 mmHg - LVOT diameter 2.2 cm - LVOT VTI 15.2 cm - LVOT mean gradient 2 mmHg - SV LVOT 58 ml - SHALONDA (continuity VTI) 3.02 cm2 - Mitral Valve Name Value Normal Range MV PHT 42 msec - MR Vmax 3.01 m/sec - MVA (PHT) 5.24 cm2 - Tricuspid Valve Name Value Normal Range TR Vmax 3.33 m/sec - TR peak gradient 44 mmHg - RAP 3 mmHg - RVSP 47 mmHg - Pulmonic Valve/Qp:Qs Name Value Normal Range PV Vmax 1.11 m/sec - PV peak gradient 5 mmHg - CT end-diastolic Vmax 1.19 m/sec - PV acceleration time 106 msec -
[2016-10-26] MEDS: TYLENOL PO PRN (00:55)
[2016-10-26] MEDS: PERCOCET 5/325 PO PRN (00:56)
[2016-10-26] MEDS: DUONEB 0.5 MG-3 MG/3 ML SOLN IH SCH ×3 (01:47→15:05)
[2016-10-26 08:10] LABS: Hemoglobin 9.6 gm/dl (11.8-15.2); Mean Corpuscular HGB Conc 37 % (32-34); Mean Corpuscular Hemoglobin 36 pg (28-32); Mean Corpuscular Volume 99 fl (84-94); Red Blood Count 2.64 M/mm3 (3.65-5.03); Red Cell Distribution Width 15.8 % (13.2-15.2); White Blood Count 15.2 K/mm3 (4.5-11.0)
[2016-10-26 08:18] LABS: BUN/Creatinine Ratio 11.87; Calcium 7.4 mg/dL (8.4-10.2); Chloride 99.5 mmol/L (98-107); Potassium 4.6 mmol/L (3.6-5.0)
[2016-10-26 08:29] LABS: Platelet Count 602 K/mm3 (140-440)
--- NOTE | 2016-10-26 09:36 | Discharge Summary ---
Providers - Providers Date of Admission: 10/22/16 18:52 Attending physician: JUSTIN NINO 10/23/16 21:19 Consult to Physician [CONS] Routine Consulting Provider: VALDEZ DE LA FUENTE Reason For Exam: chf new onset Place consult to:: Dr. Bartholomew Notified:: yes If yes, spoke with:: Swati at answering service Time called:: 09:00 10/24/16 10:11 Consult to Dietitian/Nutrition [CONS] Routine Physician Instructions: Reason For Exam: Reason for Consult: Malnutrition 10/25/16 14:11 Physical Therapy Evaluation and Treat [CONS] Routine Comment: Reason For Exam: debility Primary care physician: NEURODIAGNOSTIC TECHNOLOGIST Hospitalization Condition: Stable Disposition: STILL A PATIENT Exam - Constitutional Vitals: Temp Pulse Resp BP Pulse Ox 98.3 F 105 H 18 116/71 96 10/26/16 08:00 10/26/16 09:35 10/26/16 09:35 10/26/16 08:00 10/26/16 09:23 Plan Follow up with: PRIMARY CARE, [Primary Care Provider] - 3-5 Days Prescriptions: HYDROcodone/APAP 5-325 [Wolbach 5-325 mg TAB] 1 each PO Q6HR PRN #30 tablet PRN Reason: Pain Levofloxacin [Levaquin TAB] 500 mg PO QDAY #5 tablet Sennosides/Docusate Sodium [Senna-Docusate Sodium Tablet] 1 each PO BID #14 tablet metroNIDAZOLE [Flagyl] 500 mg PO Q8HR #15 tablet
[2016-10-26] MEDS: KEPPRA PO SCH (10:06)
[2016-10-26] MEDS: K-DUR PO SCH (10:06)
[2016-10-26] MEDS: LEVAQUIN 750MG/150ML 150 ML IV SCH (10:07)
[2016-10-26] MEDS: NORVASC PO SCH (10:07)
[2016-10-26] MEDS: PEPCID PO SCH (10:08)
[2016-10-26] MEDS: PROTONIX PO SCH (10:08)
[2016-10-26] MEDS: SODIUM BICARBONATE PO SCH (10:08)
[2016-10-26] MEDS: PLAVIX PO SCH (10:08)
[2016-10-26] MEDS: TOPROL XL PO SCH (10:09)
--- NOTE | 2016-10-26 12:06 | Progress Note ---
Assessment and Plan postoperative right sided pain s/p recent gallbladder surgery Hx of CAD normal MPI 6 months ago in [place] per patient report Hypertension Hx of Seizure disorder Continue medical therapy for CAD. Conservative cardiac management. Subjective Date of service: 10/26/16 Principal diagnosis: CHF exacerbation Interval history: Patient denies chest pain and shortness of breath. Objective Vital Signs Temp Pulse Pulse Pulse Pulse Resp Resp 10/26/16 10:09 89 10/26/16 10:07 89 10/26/16 09:35 105 H 18 10/26/16 09:23 102 H 18 10/26/16 08:00 98.3 F 100 H 20 10/26/16 02:04 99 H 16 10/26/16 01:56 20 10/26/16 01:55 95 H 18 10/26/16 01:52 10/26/16 00:56 20 10/26/16 00:55 20 10/26/16 00:15 20 10/25/16 23:30 20 10/25/16 23:15 18 10/25/16 23:00 20 10/25/16 22:00 108 H 20 10/25/16 15:23 100.2 F H 105 H 18 10/25/16 13:23 89 17 10/25/16 13:22 89 17 10/25/16 12:45 Resp BP BP Pulse Ox 10/26/16 10:09 140/86 10/26/16 10:07 140/86 10/26/16 09:35 10/26/16 09:23 96 10/26/16 08:00 116/71 96 10/26/16 02:04 10/26/16 01:56 10/26/16 01:55 10/26/16 01:52 95 10/26/16 00:56 10/26/16 00:55 10/26/16 00:15 10/25/16 23:30 10/25/16 23:15 10/25/16 23:00 10/25/16 22:00 20 97 10/25/16 15:23 113/69 10/25/16 13:23 10/25/16 13:22 10/25/16 12:45 111/65 - Physical Examination HEENT: Positive: PERRL Neck: Positive: trachea midline Cardiac: Positive: Reg Rate and Rhythm Lungs: Positive: Decreased Breath Sounds Neuro: Positive: Grossly Intact - Labs and Meds CBC 10/26/16 Range/Units 07:35 WBC 15.2 H (4.5-11.0) K/mm3 RBC 2.64 L (3.65-5.03) M/mm3 Hgb 9.6 L (11.8-15.2) gm/dl Hct 26.0 L (35.5-45.6) % Plt Count 602 H (140-440) K/mm3 Comprehensive Metabolic Panel 10/26/16 Range/Units 07:35 Sodium 141 (137-145) mmol/L Potassium 4.6 (3.6-5.0) mmol/L Chloride 99.5 (98-107) mmol/L Carbon Dioxide 21 L (22-30) mmol/L BUN 19 (9-20) mg/dL Creatinine 1.6 H (0.8-1.5) mg/dL Glucose 121 H (75-100) mg/dL Calcium 7.4 L (8.4-10.2) mg/dL - EKG Sinus rhythms and dysrhythmias: sinus rhythm
[2016-10-26] MEDS: FLAGYL PO SCH (13:36)
[2016-10-26 16:50] VITALS: BP 110/66
== END 2016-10-26 18:20 | disposition home or self-care (01) | DRG 871 ==
LOC: ED 10:22 → 2B-SURG 18:52
PROVIDERS: ADMIT Internal Medicine; ATTEND Internal Medicine
DX: A41.9 Sepsis, unspecified organism (principal); I50.43 Acute on chronic combined systolic (congestive) and diastolic (congestive) heart failure; N17.0 Acute kidney failure with tubular necrosis; E44.0 Moderate protein-calorie malnutrition; J98.11 Atelectasis; E87.2 Acidosis; Z68.1 Body mass index [BMI] 19.9 or less, adult; I11.0 Hypertensive heart disease with heart failure; I25.10 Atherosclerotic heart disease of native coronary artery without angina pectoris; K21.9 Gastro-esophageal reflux disease without esophagitis; G40.909 Epilepsy, unspecified, not intractable, without status epilepticus; Z88.6 Allergy status to analgesic agent; Z90.49 Acquired absence of other specified parts of digestive tract; Z82.49 Family history of ischemic heart disease and other diseases of the circulatory system; I25.2 Old myocardial infarction; M10.9 Gout, unspecified; F17.210 Nicotine dependence, cigarettes, uncomplicated; Z88.8 Allergy status to other drugs, medicaments and biological substances; G89.18 Other acute postprocedural pain
CPT/HCPCS: 36415; 71010; 71250; 74176; 78582; 80048; 80053; 80074; 81001; 82140; 82962; 83036; 83735; 83880; 84484; 85007; 85025; 85027; 85379; 85610; 85730; 87040; 87086; 93005; 93010; 93306; 93970; 94640; 94760; 96365; A9540; A9558; J1170; J1940; J1956; J2270; J7030; J7040; J7042